=== PATIENT | male | born 1965 | race Caucasian/White ===

== ENCOUNTER 2018-11-26 12:45 | Inpatient (IN) | payer MEDICAID, OTHER ==
[~2018-11-26] VITALS: Ht 165.1 cm; Wt 99.0 kg
[2018-11-26] MEDS ORDERED: SODIUM CHLORIDE FLUSH 10ML SYR IVF ONE ×2 (13:00→13:30)
[2018-11-26 13:14] LABS: BASOPHILS # (AUTO) 0.02 x10^3/uL (0-0.1); BASOPHILS % (AUTO) 0 % (0-1); EOSINOPHILS # (AUTO) 0.06 x10^3/uL (0-0.4); EOSINOPHILS % (AUTO) 1 % (1-7); LYMPHOCYTES # (AUTO) 0.95 x10^3/uL (1-3.4); LYMPHOCYTES % (AUTO) 10 % (22-44); MD NO; MEAN CORPUSCULAR HEMOGLOBIN 26.2 pg (27.5-34.5); MEAN CORPUSCULAR HGB CONC 31.6 g/dL (33.2-36.2); MEAN CORPUSCULAR VOLUME 82.8 fL (81-97); MEAN PLATELET VOLUME 8.6 fL (7.4-10.4); MONOCYTES # (AUTO) 0.77 x10^3/uL (0.2-0.8); MONOCYTES % (AUTO) 8 % (2-9); NEUTROPHILS # (AUTO) 7.94 x10^3/uL (1.8-6.8); NEUTROPHILS % (AUTO) 82 % (42-75); PLATELET COUNT 356 x10^3/uL (130-400); RED BLOOD COUNT 6.39 x10^6/uL (4.38-5.82); RED CELL DISTRIBUTION WIDTH 17.4 % (9.4-14.8)
[2018-11-26 13:26] LABS: ALBUMIN 3.2 g/dL (3.4-5.0); ANION GAP 7 mmol/L (5-15); CALCIUM 8.6 mg/dL (8.5-10.1); CHLORIDE 103 mmol/L (98-107)
[2018-11-26] MEDS ORDERED: FUROSEMIDE 40 MG/4 ML IV ONE (13:30)
[2018-11-26 13:33] LABS: ALANINE AMINOTRANSFERASE 14 U/L (12-78); ALKALINE PHOSPHATASE 88 U/L (45-117); BILIRUBIN,TOTAL 0.5 mg/dL (0.2-1.0); TOTAL PROTEIN 7.1 g/dL (6.4-8.2); TROPONIN I 0.038 ng/mL (0.000-0.045)
[2018-11-26] MEDS ORDERED: FUROSEMIDE 40 MG/4 ML ONE (13:34)
[2018-11-26 13:38] LABS: INTERNATIONAL NORMALIZED RATIO 1.12 (0.93-1.1); PROTHROMBIN TIME 11.8 Seconds (9.6-11.5)
--- NOTE | 2018-11-26 13:48 | NUR ---
patient safe in bed, accompanied by spouse, came from triage via wheelchair on oxymask at 12+ L/min. patient reports no pain at this time, diminished lung sounds in all moore, sinus tach 104 on the monitor, normotensive, 3+ pitting bilateral LE edema, scrotal edema. call light in reach, medicated with 40 mg IV Lasix, 2x urinals attached to bedrails and fall risk discussed with patient and spouse, Med Rec completed,
[2018-11-26] MEDS ORDERED: GABA300C10 PO (13:57)
[2018-11-26] MEDS ORDERED: ATOR40TA78 PO (13:57)
[2018-11-26] MEDS ORDERED: ASPI1CPM7 PO (13:57)
[2018-11-26] MEDS ORDERED: METF10007 PO (13:57)
[2018-11-26] MEDS ORDERED: LEVO150T5 PO (13:57)
[2018-11-26] MEDS ORDERED: AMLO-150 PO (13:57)
[2018-11-26] MEDS ORDERED: GLIP5TAB10 PO (13:57)
[2018-11-26] MEDS ORDERED: LISI-167 PO (13:57)
[2018-11-26] MEDS ORDERED: ASPI-496 PO (13:58)
[2018-11-26 14:02] LABS: FREE T4 (FREE THYROXINE) 1.07 ng/dL (0.76-1.46); THYROID STIMULATING HORMONE 7.06 mIU/L (0.358-3.740)
--- NOTE | 2018-11-26 14:36 | NUR ---
patient remains safe in [place], no urine since IV lasix administration, US at bedside now, patient reports feeling more tired since arrival to ER, he is responsive to verbal but answering in one word answers, eupneic at 18/min, 89% on oxy mask at 14L/min.
[2018-11-26] MEDS ORDERED: HEPARIN 25,000 UNITS/500ML PMX 500 ML ONE (14:51)
[2018-11-26] MEDS ORDERED: HEPARIN 5,000 UNITS/ML, 1ML ONE (14:51)
--- NOTE | 2018-11-26 14:53 | NUR ---
2nd IV started in anticipation of CCU admit, patient going to CT scan via shawnee barrientos, MD Tam updated of 88% oxygen on oxy mask, this RN has called pharmacy to expedite orders for Heparin gtt, pump and tubing in room, ready to start Heparin when orders are in EMAR.
[2018-11-26] MEDS ORDERED: HEPARIN 5,000 UNITS/ML, 1ML IV ONE ×2 (15:00)
[2018-11-26] MEDS ORDERED: PROPOFOL 10 MG/ML, 100ML IV ONE (15:00)
[2018-11-26] MEDS ORDERED: ETOMIDATE 20 MG/10 ML ONE (15:00)
[2018-11-26] MEDS ORDERED: ROCURONIUM 10 MG/ML,10ML ONE (15:00)
[2018-11-26] MEDS ORDERED: HEPARIN 25,000 UNITS/500ML PMX 500 ML IV PRN ×2 (15:00)
[2018-11-26] MEDS ORDERED: HEPARIN 5,000 UNITS/ML, 1ML IV PRN ×2 (15:00)
--- NOTE | 2018-11-26 15:08 | NUR ---
report to RN Kimmy, all questions answered, patient and spous updated of transfer plan, patient to transfer upstairs immediately upon return to ER, on Zoll monitor, accompanied by this RN and tech, heparin gtt to start upon arrival to CCU.
[2018-11-26] MEDS ORDERED: OMNIPAQUE 350 MG/ML, 100ML BOTTLE ONE (15:10)
--- NOTE | 2018-11-26 15:27 | NUR ---
patient transported to CCU without incident, CCU staff have assumed care, no acute changes noted during transport, patient's spouse has gotten up to the 5th floor,
[2018-11-26] MEDS ORDERED: FENTANYL PF 100 MCG/2ML ONE (15:55)
[2018-11-26] MEDS ORDERED: NOREPINEPHRINE 1 MG/ML, 4ML ONE (15:56)
[2018-11-26] MEDS ORDERED: FENTANYL PF 100 MCG/2ML IVPush ONE (16:09)
[2018-11-26] MEDS ORDERED: ETOMIDATE 20 MG/10 ML IVPush ONE (16:13)
[2018-11-26] MEDS ORDERED: ROCURONIUM 10 MG/ML,10ML IVPush ONE (16:13)
[2018-11-26] MEDS ORDERED: VASOPRESSIN 100 UNIT in SODIUM CHLORIDE 0.9% 495 ML IV PRN ×2 (16:30→16:36)
[2018-11-26] MEDS ORDERED: DOCUSATE 100 MG CAPSULE PO PRN (16:30)
[2018-11-26] MEDS ORDERED: ONDANSETRON 2MG/ML, 2ML IVPush PRN (16:30)
[2018-11-26] MEDS ORDERED: NOREPINEPHRINE 4 MG in SODIUM CHLORIDE 0.9% 246 ML IV PRN ×2 (16:30→16:36)
[2018-11-26] MEDS ORDERED: BISACODYL 10 MG SUPP PR PRN ×2 (16:30→17:00)
[2018-11-26] MEDS ORDERED: ACETAMINOPHEN 325 MG TABLET PO PRN (16:30)
[2018-11-26] MEDS ORDERED: SODIUM CHLORIDE 0.9% 1,000ML IVBOLUS ONE (16:30)
[2018-11-26] MEDS ORDERED: GLUCAGON 1 MG IM PRN (17:00)
[2018-11-26] MEDS ORDERED: FENTANYL PF 100 MCG/2ML IVPush PRN (17:00)
[2018-11-26] MEDS ORDERED: DEXTROSE 50%, 50ML SYRINGE IVPush PRN (17:00)
[2018-11-26] MEDS ORDERED: PHARMACY MAY ADJ FOR RENAL FX MC SCH (17:00)
[2018-11-26] MEDS ORDERED: SENNOSIDES 8.8 MG/5 ML ORAL SOL NG PRN (17:00)
[2018-11-26] MEDS ORDERED: LACTULOSE 20 GM/30 ML UDC NG PRN (17:00)
[2018-11-26] MEDS ORDERED: LIDOCAINE-MPF 1%, 2ML ENDO PRN (17:00)
[2018-11-26] MEDS ORDERED: SENNA/DOCUSATE TABLET NG PRN (17:00)
[2018-11-26] MEDS ORDERED: DEXTROSE 4 GM TAB.CHEW PO PRN (17:00)
[2018-11-26] MEDS: SODIUM CHLORIDE 0.9% 1,000 ML IV SCH (17:19)
[2018-11-26] MEDS: CEFTRIAXONE PMX 2GM/50ML 50 ML IV SCH (17:19)
[2018-11-26] MEDS: methylPREDNISolone SOD SUCC 40 MG/ML IVPush SCH ×2 (17:20→22:06)
[2018-11-26] MEDS ORDERED: REGULAR INSULIN 62.5 UNITS in SODIUM CHLORIDE 0.9% 249.375 ML IV PRN (17:30)
[2018-11-26 17:45] LABS: MICROSCOPIC INDICATED
[2018-11-26] MEDS: INSULIN LISPRO 100 UNITS/ML, PEN SQ-INSULIN SCH ×2 (17:50→20:38)
[2018-11-26 17:52] LABS: TRIGLYCERIDES 72 mg/dL (50-200)
[2018-11-26 17:54] LABS: CULTURE INDICATED? NO
[2018-11-26 17:55] LABS: TROPONIN I 0.137 ng/mL (0.000-0.045)
[2018-11-26] MEDS: DOXYCYCLINE 100 MG in DEXTROSE 5% 250 ML IV SCH (18:00)
[2018-11-26 18:02] LABS: RAPID INFLUENZA A Negative (Negative); RAPID INFLUENZA B Negative (Negative)
[2018-11-26 18:51] LABS: AMPHETAMINE SCREEN, URINE Negative (Negative); BARBITURATE SCREEN, URINE Negative (Negative); BENZODIAZEPINE SCREEN, URINE Negative (Negative); CANNABINOID SCREEN, URINE Negative (Negative); COCAINE SCREEN, URINE Negative (Negative); METHADONE SCREEN, URINE Negative (Negative); OPIATE SCREEN, URINE Negative (Negative)
[2018-11-26] MEDS: PROPOFOL 100 ML IV PRN (20:32)
[2018-11-26] MEDS: HEPARIN 5,000 UNITS/ML, 1ML SQ SCH (20:32)
[2018-11-26] MEDS: FAMOTIDINE 20 MG/2 ML IVPush SCH (20:32)
[2018-11-26] MEDS: SODIUM CHLORIDE FLUSH 10ML SYR IVF SCH (20:43)
[2018-11-26] MEDS ORDERED: INSULIN LISPRO 100 UNITS/ML, PEN SQ-INSULIN SCH (21:00)
[2018-11-26 22:02] LABS: HEMOGLOBIN A1C 7.2 % (4.2-6.3)
[2018-11-26 22:56] LABS: TROPONIN I 0.269 ng/mL (0.000-0.045)
[2018-11-27] MEDS: INSULIN LISPRO 100 UNITS/ML, PEN SQ-INSULIN SCH ×6 (01:11→20:07)
[2018-11-27] MEDS: NOREPINEPHRINE 8 MG in SODIUM CHLORIDE 0.9% 242 ML IV PRN (01:55)
[2018-11-27] MEDS: PROPOFOL 100 ML IV PRN ×6 (02:33→23:56)
[2018-11-27 04:00] VITALS: BP 122/63
[2018-11-27 04:19] LABS: ALANINE AMINOTRANSFERASE 9 U/L (12-78); ALBUMIN 2.8 g/dL (3.4-5.0); ANION GAP 6 mmol/L (5-15); CALCIUM 8.4 mg/dL (8.5-10.1); CHLORIDE 107 mmol/L (98-107); CREATININE 1.75 mg/dL (0.7-1.3)
[2018-11-27 04:21] LABS: ALKALINE PHOSPHATASE 74 U/L (45-117); BILIRUBIN,TOTAL 0.7 mg/dL (0.2-1.0); TOTAL PROTEIN 6.4 g/dL (6.4-8.2)
[2018-11-27 04:26] LABS: BASOPHILS % (AUTO) 0 % (0-1); EOSINOPHILS % (AUTO) 0 % (1-7); LYMPHOCYTES # (AUTO) 0.67 x10^3/uL (1-3.4); LYMPHOCYTES % (AUTO) 5 % (22-44); MD NO; MEAN CORPUSCULAR HEMOGLOBIN 25.9 pg (27.5-34.5); MEAN CORPUSCULAR HGB CONC 31.6 g/dL (33.2-36.2); MEAN CORPUSCULAR VOLUME 82.1 fL (81-97); MEAN PLATELET VOLUME 8.6 fL (7.4-10.4); MONOCYTES # (AUTO) 0.17 x10^3/uL (0.2-0.8); MONOCYTES % (AUTO) 1 % (2-9); NEUTROPHILS # (AUTO) 11.91 x10^3/uL (1.8-6.8); NEUTROPHILS % (AUTO) 93 % (42-75); PLATELET COUNT 363 x10^3/uL (130-400); RED BLOOD COUNT 6.53 x10^6/uL (4.38-5.82); RED CELL DISTRIBUTION WIDTH 17.6 % (9.4-14.8)
[2018-11-27] MEDS: methylPREDNISolone SOD SUCC 40 MG/ML IVPush SCH ×2 (05:17→16:44)
[2018-11-27] MEDS: HEPARIN 5,000 UNITS/ML, 1ML SQ SCH ×3 (05:17→19:53)
[2018-11-27] MEDS: SODIUM CHLORIDE 0.9% 1,000 ML IV SCH ×2 (05:17→16:17)
[2018-11-27] MEDS: DOXYCYCLINE 100 MG in DEXTROSE 5% 250 ML IV SCH ×2 (06:02→16:30)
[2018-11-27] MEDS ORDERED: FUROSEMIDE 20 MG/2 ML IV ONE (09:30)
[2018-11-27] MEDS: FAMOTIDINE 20 MG/2 ML IVPush SCH ×2 (09:37→19:53)
[2018-11-27] MEDS: SODIUM CHLORIDE FLUSH 10ML SYR IVF SCH ×2 (09:38→19:53)
[2018-11-27] MEDS: INSULIN GLARGINE 100 UNITS/ML, PEN SQ-INSULIN SCH ×2 (09:38→19:56)
--- NOTE | 2018-11-27 11:46 | NUR ---
TF Recommendations: ON propofol: 55 ml/hr goal OFF propofol: 60 ml/hr goal
[2018-11-27] MEDS: CEFTRIAXONE PMX 2GM/50ML 50 ML IV SCH (16:30)
[2018-11-27] MEDS: FUROSEMIDE 20 MG/2 ML IV SCH (16:40)
[2018-11-27 16:58] LABS: TROPONIN I 0.158 ng/mL (0.000-0.045)
[2018-11-27] MEDS ORDERED: PANTOPRAZOLE 80 MG in SODIUM CHLORIDE 0.9% 100 ML IV SCH (17:30)
[2018-11-27] MEDS ORDERED: PANTOPRAZOLE 80 MG in SODIUM CHLORIDE 0.9% 50 ML IV ONE (17:30)
[2018-11-27] MEDS ORDERED: OCTREOTIDE 500 MCG in SODIUM CHLORIDE 0.9% 249 ML IV SCH (17:30)
[2018-11-28] MEDS: INSULIN LISPRO 100 UNITS/ML, PEN SQ-INSULIN SCH ×6 (00:37→19:49)
[2018-11-28] MEDS: NOREPINEPHRINE 8 MG in SODIUM CHLORIDE 0.9% 242 ML IV PRN (02:46)
[2018-11-28 04:00] VITALS: BP 113/73
[2018-11-28] MEDS: HEPARIN 5,000 UNITS/ML, 1ML SQ SCH ×3 (04:01→19:41)
[2018-11-28] MEDS: SODIUM CHLORIDE 0.9% 1,000 ML IV SCH (04:01)
[2018-11-28 04:22] LABS: BASOPHILS # (AUTO) 0.03 x10^3/uL (0-0.1); BASOPHILS % (AUTO) 0 % (0-1); EOSINOPHILS % (AUTO) 0 % (1-7); LYMPHOCYTES # (AUTO) 0.73 x10^3/uL (1-3.4); LYMPHOCYTES % (AUTO) 5 % (22-44); MD NO; MEAN CORPUSCULAR HEMOGLOBIN 26.2 pg (27.5-34.5); MEAN CORPUSCULAR HGB CONC 32.1 g/dL (33.2-36.2); MEAN CORPUSCULAR VOLUME 81.7 fL (81-97); MEAN PLATELET VOLUME 8.9 fL (7.4-10.4); MONOCYTES # (AUTO) 0.79 x10^3/uL (0.2-0.8); MONOCYTES % (AUTO) 5 % (2-9); NEUTROPHILS # (AUTO) 13.11 x10^3/uL (1.8-6.8); NEUTROPHILS % (AUTO) 89 % (42-75); PLATELET COUNT 357 x10^3/uL (130-400); RED BLOOD COUNT 6.23 x10^6/uL (4.38-5.82); RED CELL DISTRIBUTION WIDTH 17.2 % (9.4-14.8)
[2018-11-28 04:30] LABS: ALANINE AMINOTRANSFERASE 12 U/L (12-78); ALBUMIN 2.5 g/dL (3.4-5.0); ANION GAP 7 mmol/L (5-15); CHLORIDE 108 mmol/L (98-107); CREATININE 1.62 mg/dL (0.7-1.3)
[2018-11-28 04:33] LABS: ALKALINE PHOSPHATASE 66 U/L (45-117); BILIRUBIN,TOTAL 0.5 mg/dL (0.2-1.0)
[2018-11-28] MEDS: PROPOFOL 100 ML IV PRN ×5 (04:41→19:46)
[2018-11-28] MEDS: methylPREDNISolone SOD SUCC 40 MG/ML IVPush SCH (04:41)
[2018-11-28] MEDS: DOXYCYCLINE 100 MG in DEXTROSE 5% 250 ML IV SCH ×2 (04:45→18:14)
[2018-11-28] MEDS: FAMOTIDINE 20 MG/2 ML IVPush SCH ×2 (07:55→19:41)
[2018-11-28] MEDS: FUROSEMIDE 20 MG/2 ML IV SCH ×2 (07:55→16:43)
[2018-11-28] MEDS: SODIUM CHLORIDE FLUSH 10ML SYR IVF SCH ×2 (07:56→19:42)
[2018-11-28] MEDS: INSULIN GLARGINE 100 UNITS/ML, PEN SQ-INSULIN SCH ×2 (07:56→19:49)
[2018-11-28] MEDS ORDERED: SODIUM CHLORIDE 0.9% 1,000 ML IV SCH (09:30)
[2018-11-28] MEDS: CEFTRIAXONE PMX 2GM/50ML 50 ML IV SCH (16:39)
[2018-11-29] MEDS: INSULIN LISPRO 100 UNITS/ML, PEN SQ-INSULIN SCH ×6 (00:22→20:07)
[2018-11-29] MEDS: PROPOFOL 100 ML IV PRN ×6 (01:58→20:01)
[2018-11-29 04:00] VITALS: BP 107/57
[2018-11-29] MEDS: HEPARIN 5,000 UNITS/ML, 1ML SQ SCH ×3 (04:28→20:10)
[2018-11-29] MEDS ORDERED: methylPREDNISolone SOD SUCC 40 MG/ML IVPush SCH (04:30)
[2018-11-29 04:44] LABS: BASOPHILS # (AUTO) 0.05 x10^3/uL (0-0.1); BASOPHILS % (AUTO) 1 % (0-1); EOSINOPHILS # (AUTO) 0.04 x10^3/uL (0-0.4); EOSINOPHILS % (AUTO) 0 % (1-7); LYMPHOCYTES # (AUTO) 1.21 x10^3/uL (1-3.4); LYMPHOCYTES % (AUTO) 13 % (22-44); MD NO; MEAN CORPUSCULAR HEMOGLOBIN 25.9 pg (27.5-34.5); MEAN CORPUSCULAR HGB CONC 32.1 g/dL (33.2-36.2); MEAN CORPUSCULAR VOLUME 80.7 fL (81-97); MEAN PLATELET VOLUME 8.7 fL (7.4-10.4); MONOCYTES # (AUTO) 0.73 x10^3/uL (0.2-0.8); MONOCYTES % (AUTO) 8 % (2-9); NEUTROPHILS # (AUTO) 7.65 x10^3/uL (1.8-6.8); NEUTROPHILS % (AUTO) 79 % (42-75); PLATELET COUNT 288 x10^3/uL (130-400); RED BLOOD COUNT 6.06 x10^6/uL (4.38-5.82)
[2018-11-29 04:55] LABS: ALANINE AMINOTRANSFERASE 10 U/L (12-78); ALBUMIN 2.2 g/dL (3.4-5.0); ANION GAP 5 mmol/L (5-15); CALCIUM 7.9 mg/dL (8.5-10.1); CHLORIDE 108 mmol/L (98-107); CREATININE 1.38 mg/dL (0.7-1.3)
[2018-11-29 04:59] LABS: ALKALINE PHOSPHATASE 58 U/L (45-117); BILIRUBIN,TOTAL 0.4 mg/dL (0.2-1.0); TOTAL PROTEIN 5.4 g/dL (6.4-8.2); TRIGLYCERIDES 142 mg/dL (50-200)
[2018-11-29] MEDS: DOXYCYCLINE 100 MG in DEXTROSE 5% 250 ML IV SCH ×2 (05:20→18:15)
[2018-11-29] MEDS ORDERED: DOXYCYCLINE 100 MG in DEXTROSE 5% 250 ML IV SCH ×2 (05:30→19:30)
[2018-11-29] MEDS: FAMOTIDINE 20 MG/2 ML IVPush SCH ×2 (08:57→20:01)
[2018-11-29] MEDS: POLYETHYLENE GLYCOL 17 GM PACKET PO PRN (08:57)
[2018-11-29] MEDS: FUROSEMIDE 20 MG/2 ML IV SCH ×2 (08:57→17:34)
[2018-11-29] MEDS: INSULIN GLARGINE 100 UNITS/ML, PEN SQ-INSULIN SCH ×2 (08:58→20:08)
[2018-11-29] MEDS: SODIUM CHLORIDE FLUSH 10ML SYR IVF SCH ×2 (08:59→20:10)
[2018-11-29] MEDS ORDERED: MAGNESIUM SULFATE 4 GM in SODIUM CHLORIDE 0.9% 100 ML IV ONE (10:00)
[2018-11-29] MEDS ORDERED: CEFTRIAXONE PMX 2GM/50ML 50 ML IV SCH (16:30)
[2018-11-30] MEDS: PROPOFOL 100 ML IV PRN ×4 (00:24→10:46)
[2018-11-30] MEDS: INSULIN LISPRO 100 UNITS/ML, PEN SQ-INSULIN SCH ×6 (00:26→20:26)
[2018-11-30] MEDS: HEPARIN 5,000 UNITS/ML, 1ML SQ SCH ×3 (03:57→20:21)
[2018-11-30 04:00] VITALS: BP 105/65
[2018-11-30 04:16] LABS: BASOPHILS # (AUTO) 0.01 x10^3/uL (0-0.1); BASOPHILS % (AUTO) 0 % (0-1); EOSINOPHILS # (AUTO) 0.07 x10^3/uL (0-0.4); EOSINOPHILS % (AUTO) 1 % (1-7); LYMPHOCYTES # (AUTO) 1.21 x10^3/uL (1-3.4); LYMPHOCYTES % (AUTO) 14 % (22-44); MD NO; MEAN CORPUSCULAR HEMOGLOBIN 25.9 pg (27.5-34.5); MEAN CORPUSCULAR HGB CONC 32.1 g/dL (33.2-36.2); MEAN CORPUSCULAR VOLUME 80.8 fL (81-97); MEAN PLATELET VOLUME 8.5 fL (7.4-10.4); MONOCYTES # (AUTO) 0.73 x10^3/uL (0.2-0.8); MONOCYTES % (AUTO) 9 % (2-9); NEUTROPHILS # (AUTO) 6.52 x10^3/uL (1.8-6.8); NEUTROPHILS % (AUTO) 76 % (42-75); PLATELET COUNT 267 x10^3/uL (130-400); RED BLOOD COUNT 6.15 x10^6/uL (4.38-5.82); RED CELL DISTRIBUTION WIDTH 17.5 % (9.4-14.8)
[2018-11-30 04:27] LABS: ANION GAP 3 mmol/L (5-15); CALCIUM 7.8 mg/dL (8.5-10.1); CHLORIDE 106 mmol/L (98-107); CREATININE 1.11 mg/dL (0.7-1.3)
[2018-11-30] MEDS: DOXYCYCLINE 100 MG in DEXTROSE 5% 250 ML IV SCH ×2 (05:56→17:35)
[2018-11-30] MEDS: SODIUM CHLORIDE FLUSH 10ML SYR IVF SCH ×2 (08:34→20:22)
[2018-11-30] MEDS: FAMOTIDINE 20 MG/2 ML IVPush SCH ×2 (08:34→20:21)
[2018-11-30] MEDS: INSULIN GLARGINE 100 UNITS/ML, PEN SQ-INSULIN SCH ×2 (08:38→20:27)
[2018-11-30] MEDS: AcetaZOLAMIDE INJ 500 MG IVPush SCH ×2 (10:25→20:21)
[2018-11-30] MEDS: CEFTRIAXONE PMX 2GM/50ML 50 ML IV SCH (16:12)
[2018-12-01] MEDS: INSULIN LISPRO 100 UNITS/ML, PEN SQ-INSULIN SCH ×6 (00:32→20:00)
[2018-12-01 04:00] VITALS: BP 152/80
[2018-12-01] MEDS: HEPARIN 5,000 UNITS/ML, 1ML SQ SCH ×3 (04:01→20:38)
[2018-12-01] MEDS: DOXYCYCLINE 100 MG in DEXTROSE 5% 250 ML IV SCH ×2 (04:30→17:33)
[2018-12-01 06:01] LABS: BASOPHILS # (AUTO) 0.05 x10^3/uL (0-0.1); BASOPHILS % (AUTO) 1 % (0-1); EOSINOPHILS # (AUTO) 0.09 x10^3/uL (0-0.4); EOSINOPHILS % (AUTO) 1 % (1-7); LYMPHOCYTES # (AUTO) 1.06 x10^3/uL (1-3.4); LYMPHOCYTES % (AUTO) 10 % (22-44); MD NO; MEAN CORPUSCULAR HEMOGLOBIN 25.8 pg (27.5-34.5); MEAN CORPUSCULAR VOLUME 80.7 fL (81-97); MEAN PLATELET VOLUME 8.7 fL (7.4-10.4); MONOCYTES # (AUTO) 0.83 x10^3/uL (0.2-0.8); MONOCYTES % (AUTO) 8 % (2-9); NEUTROPHILS # (AUTO) 8.61 x10^3/uL (1.8-6.8); NEUTROPHILS % (AUTO) 81 % (42-75); PLATELET COUNT 277 x10^3/uL (130-400); RED BLOOD COUNT 6.52 x10^6/uL (4.38-5.82); RED CELL DISTRIBUTION WIDTH 17.5 % (9.4-14.8)
[2018-12-01 06:15] LABS: ALANINE AMINOTRANSFERASE 15 U/L (12-78); ALBUMIN 2.9 g/dL (3.4-5.0); ANION GAP 6 mmol/L (5-15); CALCIUM 8.5 mg/dL (8.5-10.1); CHLORIDE 109 mmol/L (98-107); CREATININE 1.06 mg/dL (0.7-1.3)
[2018-12-01 06:17] LABS: ALKALINE PHOSPHATASE 76 U/L (45-117); BILIRUBIN,TOTAL 0.6 mg/dL (0.2-1.0); TOTAL PROTEIN 6.8 g/dL (6.4-8.2)
[2018-12-01] MEDS: FAMOTIDINE 20 MG/2 ML IVPush SCH ×2 (08:32→20:38)
[2018-12-01] MEDS: INSULIN GLARGINE 100 UNITS/ML, PEN SQ-INSULIN SCH ×2 (08:32→20:42)
[2018-12-01] MEDS: AcetaZOLAMIDE INJ 500 MG IVPush SCH ×2 (08:32→20:38)
[2018-12-01] MEDS: SODIUM CHLORIDE FLUSH 10ML SYR IVF SCH ×2 (08:32→20:52)
[2018-12-01] MEDS ORDERED: POTASSIUM CHLORIDE 20 MEQ TAB.ER.PRT PO ONE (10:00)
[2018-12-01] MEDS ORDERED: FUROSEMIDE 40 MG/4 ML IV ONE (10:00)
[2018-12-01] MEDS: POLYETHYLENE GLYCOL 17 GM PACKET PO PRN (10:15)
[2018-12-01] MEDS: CEFTRIAXONE PMX 2GM/50ML 50 ML IV SCH (16:29)
[2018-12-02 03:57] LABS: BASOPHILS # (AUTO) 0.06 x10^3/uL (0-0.1); BASOPHILS % (AUTO) 1 % (0-1); EOSINOPHILS # (AUTO) 0.17 x10^3/uL (0-0.4); EOSINOPHILS % (AUTO) 2 % (1-7); LYMPHOCYTES # (AUTO) 1.13 x10^3/uL (1-3.4); LYMPHOCYTES % (AUTO) 10 % (22-44); MD NO; MEAN CORPUSCULAR HEMOGLOBIN 25.8 pg (27.5-34.5); MEAN CORPUSCULAR HGB CONC 32.2 g/dL (33.2-36.2); MEAN CORPUSCULAR VOLUME 80.2 fL (81-97); MEAN PLATELET VOLUME 8.9 fL (7.4-10.4); MONOCYTES # (AUTO) 0.89 x10^3/uL (0.2-0.8); MONOCYTES % (AUTO) 8 % (2-9); NEUTROPHILS # (AUTO) 8.94 x10^3/uL (1.8-6.8); NEUTROPHILS % (AUTO) 80 % (42-75); PLATELET COUNT 262 x10^3/uL (130-400); RED BLOOD COUNT 6.34 x10^6/uL (4.38-5.82); RED CELL DISTRIBUTION WIDTH 17.1 % (9.4-14.8)
[2018-12-02 04:00] VITALS: BP 117/59
[2018-12-02] MEDS: INSULIN LISPRO 100 UNITS/ML, PEN SQ-INSULIN SCH ×6 (04:00→19:30)
[2018-12-02] MEDS: HEPARIN 5,000 UNITS/ML, 1ML SQ SCH ×3 (04:35→19:29)
[2018-12-02] MEDS: DOXYCYCLINE 100 MG in DEXTROSE 5% 250 ML IV SCH ×2 (05:28→18:01)
[2018-12-02] MEDS ORDERED: MAGNESIUM SULFATE PMX 2GM/50ML 50 ML IV ONE (07:30)
[2018-12-02] MEDS: AcetaZOLAMIDE INJ 500 MG IVPush SCH (08:42)
[2018-12-02] MEDS: INSULIN GLARGINE 100 UNITS/ML, PEN SQ-INSULIN SCH ×2 (08:42→19:29)
[2018-12-02] MEDS: FAMOTIDINE 20 MG/2 ML IVPush SCH ×2 (08:42→19:29)
[2018-12-02] MEDS ORDERED: FUROSEMIDE 40 MG/4 ML IV ONE (09:00)
[2018-12-02] MEDS ORDERED: POTASSIUM CHLORIDE 20 MEQ TAB.ER.PRT PO ONE (09:00)
[2018-12-02] MEDS: SODIUM CHLORIDE FLUSH 10ML SYR IVF SCH ×2 (09:33→19:29)
[2018-12-02] MEDS: CEFTRIAXONE PMX 2GM/50ML 50 ML IV SCH (16:07)
[2018-12-02 19:45] VITALS: BP 131/77
[2018-12-03 01:22] VITALS: BP 113/72
[2018-12-03] MEDS: HEPARIN 5,000 UNITS/ML, 1ML SQ SCH ×3 (03:43→20:17)
[2018-12-03] MEDS: DOXYCYCLINE 100 MG in DEXTROSE 5% 250 ML IV SCH ×2 (05:23→17:59)
[2018-12-03] MEDS: INSULIN LISPRO 100 UNITS/ML, PEN SQ-INSULIN SCH ×4 (07:00→20:21)
[2018-12-03] MEDS: FAMOTIDINE 20 MG/2 ML IVPush SCH ×2 (07:59→20:16)
[2018-12-03] MEDS: SODIUM CHLORIDE FLUSH 10ML SYR IVF SCH ×2 (08:00→20:17)
[2018-12-03] MEDS: INSULIN GLARGINE 100 UNITS/ML, PEN SQ-INSULIN SCH ×2 (08:00→20:21)
[2018-12-03 09:22] VITALS: BP 110/68
[2018-12-03] MEDS ORDERED: FUROSEMIDE 40 MG/4 ML IV ONE (12:00)
[2018-12-03] MEDS ORDERED: POTASSIUM CHLORIDE 20 MEQ TAB.ER.PRT PO ONE (12:00)
[2018-12-03 12:47] VITALS: BP 115/74
[2018-12-03] MEDS: CEFTRIAXONE PMX 2GM/50ML 50 ML IV SCH (16:48)
[2018-12-03 18:53] VITALS: BP 113/71
[2018-12-04 00:12] VITALS: BP 124/71
[2018-12-04] MEDS: HEPARIN 5,000 UNITS/ML, 1ML SQ SCH ×3 (04:23→20:30)
[2018-12-04] MEDS: DOXYCYCLINE 100 MG in DEXTROSE 5% 250 ML IV SCH ×2 (05:26→17:36)
[2018-12-04 06:32] VITALS: BP 119/77
[2018-12-04] MEDS: INSULIN GLARGINE 100 UNITS/ML, PEN SQ-INSULIN SCH ×2 (07:52→20:40)
[2018-12-04] MEDS: INSULIN LISPRO 100 UNITS/ML, PEN SQ-INSULIN SCH ×4 (07:52→20:39)
[2018-12-04] MEDS: FAMOTIDINE 20 MG/2 ML IVPush SCH (08:45)
[2018-12-04] MEDS: SODIUM CHLORIDE FLUSH 10ML SYR IVF SCH ×2 (08:46→20:32)
[2018-12-04 10:49] LABS: BASOPHILS # (AUTO) 0.04 x10^3/uL (0-0.1); BASOPHILS % (AUTO) 1 % (0-1); EOSINOPHILS # (AUTO) 0.14 x10^3/uL (0-0.4); EOSINOPHILS % (AUTO) 2 % (1-7); LYMPHOCYTES # (AUTO) 0.98 x10^3/uL (1-3.4); LYMPHOCYTES % (AUTO) 12 % (22-44); MD NO; MEAN CORPUSCULAR HEMOGLOBIN 25.4 pg (27.5-34.5); MEAN CORPUSCULAR HGB CONC 31.8 g/dL (33.2-36.2); MEAN CORPUSCULAR VOLUME 79.9 fL (81-97); MEAN PLATELET VOLUME 8.9 fL (7.4-10.4); MONOCYTES # (AUTO) 1.07 x10^3/uL (0.2-0.8); MONOCYTES % (AUTO) 13 % (2-9); NEUTROPHILS # (AUTO) 5.85 x10^3/uL (1.8-6.8); NEUTROPHILS % (AUTO) 72 % (42-75); PLATELET COUNT 298 x10^3/uL (130-400); RED BLOOD COUNT 6.16 x10^6/uL (4.38-5.82); RED CELL DISTRIBUTION WIDTH 16.9 % (9.4-14.8)
[2018-12-04 10:59] LABS: ALANINE AMINOTRANSFERASE 21 U/L (12-78); ALBUMIN 2.8 g/dL (3.4-5.0); ANION GAP 5 mmol/L (5-15); CALCIUM 8.7 mg/dL (8.5-10.1); CHLORIDE 106 mmol/L (98-107); CREATININE 0.94 mg/dL (0.7-1.3)
[2018-12-04 11:02] LABS: ALKALINE PHOSPHATASE 71 U/L (45-117); BILIRUBIN,TOTAL 0.4 mg/dL (0.2-1.0); TOTAL PROTEIN 6.7 g/dL (6.4-8.2)
[2018-12-04 13:39] VITALS: BP 111/72
[2018-12-04] MEDS: CEFTRIAXONE PMX 2GM/50ML 50 ML IV SCH (16:29)
[2018-12-04 18:33] VITALS: BP 119/76
[2018-12-04] MEDS: FAMOTIDINE 20 MG TABLET PO SCH (20:30)
[2018-12-05 00:13] VITALS: BP 120/77
[2018-12-05] MEDS: HEPARIN 5,000 UNITS/ML, 1ML SQ SCH ×2 (04:27→12:00)
[2018-12-05 05:03] LABS: ALANINE AMINOTRANSFERASE 18 U/L (12-78); ALBUMIN 2.8 g/dL (3.4-5.0); ANION GAP 3 mmol/L (5-15); BASOPHILS # (AUTO) 0.04 x10^3/uL (0-0.1); BASOPHILS % (AUTO) 1 % (0-1); CALCIUM 8.3 mg/dL (8.5-10.1); CHLORIDE 108 mmol/L (98-107); CREATININE 0.89 mg/dL (0.7-1.3); EOSINOPHILS % (AUTO) 2 % (1-7); LYMPHOCYTES # (AUTO) 1.19 x10^3/uL (1-3.4); LYMPHOCYTES % (AUTO) 15 % (22-44); MD NO; MEAN CORPUSCULAR VOLUME 81.3 fL (81-97); MEAN PLATELET VOLUME 9.1 fL (7.4-10.4); MONOCYTES # (AUTO) 1.04 x10^3/uL (0.2-0.8); MONOCYTES % (AUTO) 13 % (2-9); NEUTROPHILS # (AUTO) 5.62 x10^3/uL (1.8-6.8); NEUTROPHILS % (AUTO) 70 % (42-75); PLATELET COUNT 298 x10^3/uL (130-400); RED BLOOD COUNT 6.18 x10^6/uL (4.38-5.82); RED CELL DISTRIBUTION WIDTH 16.7 % (9.4-14.8)
[2018-12-05 05:06] LABS: ALKALINE PHOSPHATASE 67 U/L (45-117); BILIRUBIN,TOTAL 0.7 mg/dL (0.2-1.0); TOTAL PROTEIN 6.8 g/dL (6.4-8.2)
[2018-12-05] MEDS ORDERED: DOXYCYCLINE 100MG TABLET PO SCH ×2 (05:30)
[2018-12-05 07:22] VITALS: BP 116/78
[2018-12-05] MEDS: INSULIN LISPRO 100 UNITS/ML, PEN SQ-INSULIN SCH ×2 (07:31→10:52)
[2018-12-05] MEDS: FAMOTIDINE 20 MG TABLET PO SCH (09:01)
[2018-12-05] MEDS: SODIUM CHLORIDE FLUSH 10ML SYR IVF SCH (09:01)
[2018-12-05] MEDS: INSULIN GLARGINE 100 UNITS/ML, PEN SQ-INSULIN SCH (09:03)
[2018-12-05] MEDS ORDERED: DOXY100T PO (11:07)
[2018-12-05] MEDS ORDERED: CEFD300C37 PO (11:07)
== END 2018-12-05 14:58 | disposition home or self-care (01) | DRG 870 ==
LOC: ED 14:14 → EDIP 14:16 → CCU 15:19 → 3NW 12-02 16:29 → DCLOUNGE 12-05 14:39
PROVIDERS: ADMIT Internal Medicine; ATTEND Internal Medicine
PROC: 5A1955Z Respiratory Ventilation, Greater than 96 Consecutive Hours (ICD-10-PCS; principal; 2018-11-26)
PROC: 02HV33Z Insertion of Infusion Device into Superior Vena Cava, Percutaneous Approach (ICD-10-PCS; 2018-11-26)
PROC: B548ZZA Ultrasonography of Superior Vena Cava, Guidance (ICD-10-PCS; 2018-11-26)
PROC: 0BH17EZ Insertion of Endotracheal Airway into Trachea, Via Natural or Artificial Opening (ICD-10-PCS; 2018-11-26)
DX: A41.9 Sepsis, unspecified organism (principal); J18.1 Lobar pneumonia, unspecified organism; J96.01 Acute respiratory failure with hypoxia; J96.02 Acute respiratory failure with hypercapnia; N17.0 Acute kidney failure with tubular necrosis; R65.21 Severe sepsis with septic shock; G93.40 Encephalopathy, unspecified; Z99.11 Dependence on respirator [ventilator] status; D75.89 Other specified diseases of blood and blood-forming organs; E11.9 Type 2 diabetes mellitus without complications; E78.5 Hyperlipidemia, unspecified; E87.5 Hyperkalemia; G47.33 Obstructive sleep apnea (adult) (pediatric); G89.4 Chronic pain syndrome; I11.0 Hypertensive heart disease with heart failure; I27.29 Other secondary pulmonary hypertension; M19.90 Unspecified osteoarthritis, unspecified site; I87.8 Other specified disorders of veins; I27.81 Cor pulmonale (chronic); I27.20 Pulmonary hypertension, unspecified; I50.811 Acute right heart failure; Z77.22 Contact with and (suspected) exposure to environmental tobacco smoke (acute) (chronic); Z86.73 Personal history of transient ischemic attack (TIA), and cerebral infarction without residual deficits; Z79.84 Long term (current) use of oral hypoglycemic drugs
CPT/HCPCS: 36415; 36600; 84145; 87400; 99291; J3490; 70450; 71045; 71275; 80048; 80053; 80307; 81001; 82274; 82533; 82728; 82803; 82962; 83036; 83540; 83550; 83605; 83735; 83880; 84100; 84132; 84439; 84443; 84478; 84484; 85025; 85520; 85610; 87040; 87070; 87081; 87205; 93005; 93306; 93308; 93970; 94002; 94003; 94150; 96372; 96374; 96375; G0378; J0696; J1644; J1940; J2704; J3010; J3475; J7060; Q9967; J1120; J1815; J2920; J7030; J7050

== ENCOUNTER → 2019-02-26 | Outpatient (CLI) | payer MEDICAID ==
[~2019-02-26] MED LIST: AMLO-150 PO; ASPI-496 PO; ASPI1CPM7 PO; ATOR40TA78 PO; CEFD300C37 PO; DOXY100T PO; GABA300C10 PO; GLIP5TAB10 PO; LEVO150T5 PO; LISI-167 PO; METF10007 PO
== END | disposition home or self-care (01) ==
LOC: CFH 12:46
PROVIDERS: ATTEND Internal Medicine Cardiovascular Disease
DX: I35.1 Nonrheumatic aortic (valve) insufficiency (principal); E78.5 Hyperlipidemia, unspecified; E11.9 Type 2 diabetes mellitus without complications; I11.9 Hypertensive heart disease without heart failure
CPT/HCPCS: 93306

== ENCOUNTER 2019-03-24 08:16 | Day surgery (SDC) | payer MEDICAID ==
[2019-03-22 11:44] LABS: BASOPHILS # (AUTO) 0.01 x10^3/uL (0-0.1); BASOPHILS % (AUTO) 0 % (0-1); EOSINOPHILS # (AUTO) 0.12 x10^3/uL (0-0.4); EOSINOPHILS % (AUTO) 2 % (1-7); LYMPHOCYTES # (AUTO) 1.11 x10^3/uL (1-3.4); LYMPHOCYTES % (AUTO) 15 % (22-44); MD NO; MEAN CORPUSCULAR HEMOGLOBIN 28.4 pg (27.5-34.5); MEAN CORPUSCULAR HGB CONC 32.8 g/dL (33.2-36.2); MEAN CORPUSCULAR VOLUME 86.4 fL (81-97); MEAN PLATELET VOLUME 7.8 fL (7.4-10.4); MONOCYTES # (AUTO) 0.53 x10^3/uL (0.2-0.8); MONOCYTES % (AUTO) 7 % (2-9); NEUTROPHILS # (AUTO) 5.49 x10^3/uL (1.8-6.8); NEUTROPHILS % (AUTO) 76 % (42-75); PLATELET COUNT 337 x10^3/uL (130-400); RED BLOOD COUNT 5.18 x10^6/uL (4.38-5.82); RED CELL DISTRIBUTION WIDTH 14.6 % (9.4-14.8)
[2019-03-22 11:53] LABS: INTERNATIONAL NORMALIZED RATIO 0.97 (0.93-1.1); PROTHROMBIN TIME 10.2 Seconds (9.6-11.5)
[2019-03-22 11:54] LABS: ANION GAP 1 mmol/L (5-15); CALCIUM 9.2 mg/dL (8.5-10.1); CHLORIDE 102 mmol/L (98-107)
[2019-03-22 11:55] VITALS: BP 139/79
[~2019-03-24] VITALS: Ht 165.1 cm; Wt 100.0 kg
[~2019-03-24 08:16] MED LIST changes: +ASPI1CPM9 PO; +ATOR10TA PO; +BUME1TAB21 PO; +CARV6.2512 PO; +LISI40TA PO
[2019-03-24] MEDS ORDERED: DIPHENHYDRAMINE 50 MG/ML, 1ML IVPush PRN (09:00)
[2019-03-24] MEDS ORDERED: DIPHENHYDRAMINE 50 MG/ML, 1ML ONE (09:12)
[2019-03-24] MEDS ORDERED: VERAPAMIL 2.5 MG/ML, 2ML ONE (09:38)
[2019-03-24] MEDS ORDERED: HEPARIN 1,000 UNITS/ML, 10ML ONE (09:38)
[2019-03-24] MEDS ORDERED: NITROGLYCERIN 5 MG/ML, 10ML ONE (09:38)
[2019-03-24] MEDS ORDERED: MIDAZOLAM 1 MG/ML, 5ML ONE (09:38)
[2019-03-24] MEDS ORDERED: LIDOCAINE-MPF 1%, 5ML ONE (09:38)
[2019-03-24] MEDS ORDERED: FENTANYL PF 100 MCG/2ML ONE (09:38)
[2019-03-24] MEDS ORDERED: SODIUM CHLORIDE 0.9% 1,000 ML IV SCH (11:06)
== END 2019-03-24 13:20 | disposition home or self-care (01) ==
LOC: CACL 08:16
PROVIDERS: ATTEND Internal Medicine Cardiovascular Disease
DX: I27.23 Pulmonary hypertension due to lung diseases and hypoxia (principal); E11.9 Type 2 diabetes mellitus without complications; I10 Essential (primary) hypertension; E78.5 Hyperlipidemia, unspecified; Z88.0 Allergy status to penicillin; Z87.891 Personal history of nicotine dependence
CPT/HCPCS: 36415; 80048; 85025; 85610; 85730; 93460; 99156; 99157; C1769; C1894; J1200; J1644; J2250; J3010; Q9967

== ENCOUNTER 2019-05-03 16:12 | Inpatient (IN) | payer MEDICAID ==
[~2019-05-03] VITALS: Ht 165.1 cm; Wt 101.0 kg
[2019-05-13 07:25] VITALS: BP 113/73
== END 2019-05-13 12:50 | disposition home health service (06) | DRG 208 ==
LOC: ED 18:29 → EDIP 18:42 → CCU 18:52 → 5SO 05-07 18:19
PROVIDERS: ADMIT Family Medicine; ATTEND Family Medicine
PROC: 5A1935Z Respiratory Ventilation, Less than 24 Consecutive Hours (ICD-10-PCS; principal; 2019-05-03)
PROC: 0BH17EZ Insertion of Endotracheal Airway into Trachea, Via Natural or Artificial Opening (ICD-10-PCS; 2019-05-03)
PROC: 0T9B70Z Drainage of Bladder with Drainage Device, Via Natural or Artificial Opening (ICD-10-PCS; 2019-05-03)
PROC: 02HV33Z Insertion of Infusion Device into Superior Vena Cava, Percutaneous Approach (ICD-10-PCS; 2019-05-04)
PROC: B548ZZA Ultrasonography of Superior Vena Cava, Guidance (ICD-10-PCS; 2019-05-04)
PROC: 0BJ08ZZ Inspection of Tracheobronchial Tree, Via Natural or Artificial Opening Endoscopic (ICD-10-PCS; 2019-05-11)
DX: J96.21 Acute and chronic respiratory failure with hypoxia (principal); N17.0 Acute kidney failure with tubular necrosis; J15.9 Unspecified bacterial pneumonia; I50.21 Acute systolic (congestive) heart failure; J44.0 Chronic obstructive pulmonary disease with (acute) lower respiratory infection; Z99.11 Dependence on respirator [ventilator] status; I13.0 Hypertensive heart and chronic kidney disease with heart failure and stage 1 through stage 4 chronic kidney disease, or unspecified chronic kidney disease; E87.3 Alkalosis; J96.22 Acute and chronic respiratory failure with hypercapnia; M06.9 Rheumatoid arthritis, unspecified; N18.9 Chronic kidney disease, unspecified; D64.9 Anemia, unspecified; E03.9 Hypothyroidism, unspecified; I27.81 Cor pulmonale (chronic); H54.7 Unspecified visual loss; E11.22 Type 2 diabetes mellitus with diabetic chronic kidney disease; E78.5 Hyperlipidemia, unspecified; I27.21 Secondary pulmonary arterial hypertension; G47.33 Obstructive sleep apnea (adult) (pediatric); E66.9 Obesity, unspecified; Z83.3 Family history of diabetes mellitus; Z99.81 Dependence on supplemental oxygen; Z82.49 Family history of ischemic heart disease and other diseases of the circulatory system; Z79.84 Long term (current) use of oral hypoglycemic drugs; Z86.73 Personal history of transient ischemic attack (TIA), and cerebral infarction without residual deficits; Z87.891 Personal history of nicotine dependence; Z68.37 Body mass index [BMI] 37.0-37.9, adult; Z88.0 Allergy status to penicillin
CPT/HCPCS: 36415; 36600; 84145; 99291; J3490; J7620; 31624; 36573; 71045; 71046; 71250; 76770; 80048; 80053; 80162; 80307; 81001; 82436; 82570; 82803; 82962; 83036; 83605; 83690; 83735; 83880; 84100; 84132; 84439; 84443; 84478; 84481; 84484; 84550; 84560; 85025; 87040; 87070; 87081; 87102; 87205; 88112; 88305; 93005; 93970; 94002; 94003; 94640; 94667; 94668; 96365; 96375; 99152; 99153; C8929; G0378; J0456; J0696; J1644; J1940; J2250; J2704; J3010; J3480; J7060; P9047; Q9957; C1751; J1815; J3475; J7050

== ENCOUNTER 2019-12-04 18:28 | Inpatient (IN) | payer MEDICAID ==
[~2019-12-04] VITALS: Ht 185.4 cm; Wt 99.2 kg
[~2019-12-04 18:28] MED LIST changes: +CARV3.1212 PO
--- NOTE | 2019-12-04 18:39 | NUR ---
Pt ANTWAN ARANA- Pt's called EMS at 1800 states found pt unresponsive in his recliner, last known well at 0900. On arrival pt not responsive to painful stimuli, Skin PWD, manual BP with doppler is 52 Systolic. At 1829 Pt given 100mg Rocuronium IVP per Dr. Montelongo. Pt intubated by Dr. Montelongo at 183 with 8.0 ETT @25cm at the teeth.
[2019-12-04] MEDS ORDERED: methylPREDNISolone SOD SUCC 125 MG/2 ML ONE (18:42)
[2019-12-04] MEDS ORDERED: ALBUTEROL 0.5%, 20ML ONE (18:43)
--- NOTE | 2019-12-04 18:46 | NUR ---
Pharmacy called for epi gtt
--- NOTE | 2019-12-04 18:48 | NUR ---
Pads placed on pt. Solumedrol 125mg IVP given at 1848.
--- NOTE | 2019-12-04 18:49 | NUR ---
2L NS bolus currently infusing.
--- NOTE | 2019-12-04 18:53 | NUR ---
Epi gtt started at 0.5mcg/kg/min per Dr. Montelongo
[2019-12-04] MEDS ORDERED: SODIUM CHLORIDE 0.9% 1,000ML IVBOLUS ONE ×2 (19:00→23:00)
[2019-12-04] MEDS ORDERED: PROPOFOL 100 ML IV PRN (19:00)
[2019-12-04] MEDS ORDERED: EPINEPHRINE 10 MG in SODIUM CHLORIDE 0.9% 240 ML IV PRN (19:00)
[2019-12-04] MEDS ORDERED: ROCURONIUM 10 MG/ML,10ML IVPush ONE (19:00)
--- NOTE | 2019-12-04 19:05 | NUR ---
Dr. Montelongo inserting art line at this time.
--- NOTE | 2019-12-04 19:10 | NUR ---
CALLED INQUIRING ABOUT PT. WAS INFORMED HER PRESENCE IS REQUESTED AT THIS TIME
--- NOTE | 2019-12-04 19:10 | NUR ---
Art line inserted in R radial artery by Dr. Montelongo. Pt's BP 289/94 via art line. Epi gtt held per Dr. Montelongo.
[2019-12-04 19:11] LABS: BASOPHILS % (AUTO) 0 % (0-1); EOSINOPHILS % (AUTO) 0 % (1-7); LYMPHOCYTES # (AUTO) 0.44 x10^3/uL (1-3.4); LYMPHOCYTES % (AUTO) 5 % (22-44); MD NO; MEAN CORPUSCULAR HEMOGLOBIN 27.6 pg (27.5-34.5); MEAN CORPUSCULAR HGB CONC 32.3 g/dL (33.2-36.2); MEAN CORPUSCULAR VOLUME 85.4 fL (81-97); MONOCYTES # (AUTO) 0.46 x10^3/uL (0.2-0.8); MONOCYTES % (AUTO) 5 % (2-9); NEUTROPHILS # (AUTO) 8.78 x10^3/uL (1.8-6.8); NEUTROPHILS % (AUTO) 91 % (42-75); PLATELET COUNT 252 x10^3/uL (130-400); RED BLOOD COUNT 4.47 x10^6/uL (4.38-5.82); RED CELL DISTRIBUTION WIDTH 14.7 % (9.4-14.8)
--- NOTE | 2019-12-04 19:15 | NUR ---
Pt's art line BP 165/58. Epi gtt started again at 0.2mcg/kg/min
[2019-12-04 19:19] LABS: INTERNATIONAL NORMALIZED RATIO 0.94 (0.93-1.1)
[2019-12-04] MEDS ORDERED: MAGNESIUM SULFATE 8 MEQ/2 ML ONE (19:21)
[2019-12-04] MEDS ORDERED: SODIUM CHLORIDE 0.9%, 25ML ONE (19:21)
[2019-12-04] MEDS ORDERED: CODE BLUE RESPONSE XX ONE (19:21)
[2019-12-04 19:22] LABS: ALBUMIN 3.1 g/dL (3.4-5.0); ANION GAP 7 mmol/L (5-15); CALCIUM 7.6 mg/dL (8.5-10.1); CHLORIDE 98 mmol/L (98-107)
[2019-12-04 19:23] LABS: SALICYLATE LEVEL < 1.7 mg/dL (2.8-20.0)
[2019-12-04] MEDS ORDERED: CEFTRIAXONE PMX 1GM/50ML 50 ML ONE (19:23)
[2019-12-04 19:25] LABS: ALANINE AMINOTRANSFERASE 10 U/L (12-78); BILIRUBIN,TOTAL 0.5 mg/dL (0.2-1.0); CREATININE 6.64 mg/dL (0.7-1.3); TOTAL PROTEIN 6.7 g/dL (6.4-8.2); TROPONIN I 0.053 ng/mL (0.000-0.045)
--- NOTE | 2019-12-04 19:25 | NUR ---
Epi gtt held again per Dr. Montelongo
[2019-12-04] MEDS ORDERED: CEFTRIAXONE PMX 1GM/50ML 50 ML IV ONE (19:30)
[2019-12-04] MEDS ORDERED: AZITHROMYCIN 500 MG in SODIUM CHLORIDE 0.9% 250 ML IV ONE (19:30)
[2019-12-04 19:31] LABS: ALKALINE PHOSPHATASE 77 U/L (45-117); FREE T4 (FREE THYROXINE) 1.09 ng/dL (0.76-1.46)
--- NOTE | 2019-12-04 19:31 | NUR ---
Report to Yuan REECE.
--- NOTE | 2019-12-04 19:45 | NUR ---
ART LINE STARTED, EPI DRIP STARTED FOR BP MAP <65, MAP 58 CURRENTLY. EPI DRIP STARTED AT 0.05mcg/kg/min.
[2019-12-04] MEDS ORDERED: VASOPRESSIN 20 UNIT in SODIUM CHLORIDE 0.9% 99 ML IV SCH (19:53)
[2019-12-04] MEDS ORDERED: NOREPINEPHRINE 8 MG in SODIUM CHLORIDE 0.9% 242 ML IV PRN ×2 (20:00→22:34)
--- NOTE | 2019-12-04 20:13 | NUR ---
PT PREPPED FOR CT, PT PLACED ON PORTABLE MONITOR TO MONITOR ART LINE. RTX2 AT BEDSIDE FOR TRANSPORT.
--- NOTE | 2019-12-04 20:30 | NUR ---
SEDATION STARTED PT STARTING TO MOVE ARM. SOFT RESTRIANTS APPLIED TO BILAT WRISTS. ERMD AWARE, ORDER OBTAINED.
[2019-12-04] MEDS ORDERED: ACETAMINOPHEN 650 MG SUPP ONE (21:44)
[2019-12-04] MEDS ORDERED: ACETAMINOPHEN 650 MG SUPP PR PRN (22:00)
[2019-12-04] MEDS ORDERED: VASOPRESSIN 20 UNIT in SODIUM CHLORIDE 0.9% 99 ML IV PRN ×2 (22:34→23:00)
[2019-12-04] MEDS ORDERED: FAMOTIDINE 20 MG/2 ML IV SCH (23:00)
[2019-12-04] MEDS ORDERED: SODIUM CHLORIDE 0.9% 1,000 ML IV SCH (23:00)
[2019-12-04] MEDS ORDERED: PHARMACY MAY ADJ FOR RENAL FX MC SCH (23:00)
[2019-12-04] MEDS ORDERED: LIDOCAINE-MPF 1%, 2ML ENDO PRN (23:00)
[2019-12-04] MEDS ORDERED: SENNA/DOCUSATE TABLET NG PRN (23:00)
[2019-12-04] MEDS ORDERED: GLUCAGON 1 MG IM PRN (23:00)
[2019-12-04] MEDS: AZITHROMYCIN 500 MG in SODIUM CHLORIDE 0.9% 250 ML IV SCH (23:00)
[2019-12-04] MEDS ORDERED: FENTANYL PF 100 MCG/2ML IVPush PRN (23:00)
[2019-12-04] MEDS ORDERED: DEXTROSE 50%, 50ML SYRINGE IVPush PRN (23:00)
[2019-12-04] MEDS ORDERED: SENNA 176 MG/5 ML ORAL SOL NG PRN (23:00)
[2019-12-04] MEDS ORDERED: DEXTROSE 4 GM TAB.CHEW PO PRN (23:00)
[2019-12-04] MEDS ORDERED: LACTULOSE 20 GM/30 ML UDC NG PRN (23:00)
[2019-12-04] MEDS: ALBUTEROL/IPRATROPIUM 2.5MG/0.5MG, 3 ML INLINE SCH (23:20)
[2019-12-04 23:22] LABS: TROPONIN I 0.185 ng/mL (0.000-0.045)
[2019-12-04] MEDS ORDERED: FUROSEMIDE 100 MG in SODIUM CHLORIDE 0.9% 90 ML IV PRN (23:45)
[2019-12-04] MEDS: methylPREDNISolone SOD SUCC 125 MG/2 ML IVPush SCH (23:48)
[2019-12-04] MEDS: HEPARIN 5,000 UNITS/ML, 1ML SQ SCH (23:48)
[2019-12-05] MEDS ORDERED: FUROSEMIDE 20 MG/2 ML IV ONE
[2019-12-05] MEDS ORDERED: SODIUM CHLORIDE 0.9% IV SCH
[2019-12-05] MEDS ORDERED: POTASSIUM CHLORIDE PMX 100 ML IV ONE
[2019-12-05] MEDS ORDERED: FUROSEMIDE IV SCH
[2019-12-05] MEDS: PROPOFOL 100 ML IV PRN ×4 (00:55→21:36)
[2019-12-05] MEDS: NOREPINEPHRINE 8 MG in SODIUM CHLORIDE 0.9% 242 ML IV PRN ×2 (00:56→05:35)
[2019-12-05] MEDS ORDERED: SODIUM BICARBONATE 1 MEQ/ML, 50ML VIAL ONE (01:29)
[2019-12-05] MEDS ORDERED: SODIUM BICARB 8.4%, 50ML SYRINGE IVPush ONE (01:30)
[2019-12-05] MEDS: ALBUTEROL/IPRATROPIUM 2.5MG/0.5MG, 3 ML INLINE SCH ×6 (03:20→23:25)
[2019-12-05 04:00] VITALS: BP 101/43
[2019-12-05 04:28] LABS: MEAN CORPUSCULAR HEMOGLOBIN 27.7 pg (27.5-34.5); MEAN CORPUSCULAR HGB CONC 32.7 g/dL (33.2-36.2); MEAN CORPUSCULAR VOLUME 84.7 fL (81-97); PLATELET COUNT 234 x10^3/uL (130-400); RED BLOOD COUNT 4.62 x10^6/uL (4.38-5.82); RED CELL DISTRIBUTION WIDTH 15.1 % (9.4-14.8)
[2019-12-05 04:37] LABS: ANION GAP 25 mmol/L (5-15); CALCIUM 8.1 mg/dL (8.5-10.1); CHLORIDE 95 mmol/L (98-107)
[2019-12-05 04:43] LABS: ALANINE AMINOTRANSFERASE 12 U/L (12-78); ALKALINE PHOSPHATASE 77 U/L (45-117); BILIRUBIN,TOTAL 0.7 mg/dL (0.2-1.0); TOTAL PROTEIN 6.7 g/dL (6.4-8.2)
[2019-12-05 04:46] LABS: BASOPHILS # (AUTO) 0.05 x10^3/uL (0-0.1); BASOPHILS % (AUTO) 0 % (0-1); EOSINOPHILS # (AUTO) 0.02 x10^3/uL (0-0.4); EOSINOPHILS % (AUTO) 0 % (1-7); LYMPHOCYTES # (AUTO) 0.32 x10^3/uL (1-3.4); LYMPHOCYTES % (AUTO) 3 % (22-44); MD SCAN; MONOCYTES # (AUTO) 0.19 x10^3/uL (0.2-0.8); MONOCYTES % (AUTO) 2 % (2-9); NEUTROPHILS # (AUTO) 11.95 x10^3/uL (1.8-6.8); NEUTROPHILS % (AUTO) 95 % (42-75)
[2019-12-05] MEDS ORDERED: ETOMIDATE 20 MG/10 ML ONE (05:30)
[2019-12-05] MEDS ORDERED: EPINEPHRINE SYRINGE 0.1 MG/ML, 10ML ONE (05:30)
[2019-12-05] MEDS ORDERED: PROPOFOL 10 MG/ML, 100ML IV ONE (05:30)
[2019-12-05] MEDS ORDERED: PROPOFOL 10 MG/ML, 20ML ONE (05:30)
[2019-12-05] MEDS: methylPREDNISolone SOD SUCC 125 MG/2 ML IVPush SCH ×3 (05:39→23:05)
[2019-12-05] MEDS ORDERED: INSULIN LISPRO 100 UNITS/ML, PEN SQ-INSULIN SCH ×2 (07:00→07:30)
[2019-12-05] MEDS ORDERED: INSULIN INFUSION FOR ICU PROTOCOL XX PRN (10:00)
[2019-12-05] MEDS ORDERED: REGULAR INSULIN 100 UNITS in SODIUM CHLORIDE 0.9% 99 ML IV PRN (10:00)
[2019-12-05] MEDS: SODIUM CHLORIDE 0.9% 1,000 ML IV SCH (10:16)
[2019-12-05] MEDS: HEPARIN 5,000 UNITS/ML, 1ML SQ SCH ×3 (10:17→23:07)
[2019-12-05] MEDS: SODIUM CHLORIDE FLUSH 10ML SYR IVF SCH ×2 (10:18→21:37)
[2019-12-05 10:23] LABS: MICROSCOPIC INDICATED
[2019-12-05 10:32] LABS: AMPHETAMINE SCREEN, URINE Negative (Negative); BARBITURATE SCREEN, URINE Negative (Negative); BENZODIAZEPINE SCREEN, URINE Negative (Negative); CANNABINOID SCREEN, URINE Negative (Negative); CHLORIDE,URINE RANDOM 64 mmol/L; COCAINE SCREEN, URINE Negative (Negative); METHADONE SCREEN, URINE Negative (Negative); OPIATE SCREEN, URINE Negative (Negative); POTASSIUM,URINE RANDOM 37 mmol/L; SODIUM,URINE RANDOM 69 mmol/L
[2019-12-05 10:33] LABS: CULTURE INDICATED? YES
[2019-12-05 10:41] LABS: OSMOLALITY,URINE 345 mOsm/kg (500-850)
[2019-12-05] MEDS: BUDESONIDE 0.5 MG/2 ML INHA INH SCH ×2 (10:45→20:45)
[2019-12-05 10:55] LABS: TROPONIN I 0.169 ng/mL (0.000-0.045)
[2019-12-05 16:59] LABS: RAPID INFLUENZA A Negative (Negative); RAPID INFLUENZA B Negative (Negative)
[2019-12-05] MEDS: CEFTRIAXONE PMX 1GM/50ML 50 ML IV SCH (20:10)
[2019-12-05] MEDS: FAMOTIDINE 20 MG/2 ML IV SCH (20:10)
[2019-12-05] MEDS: AZITHROMYCIN 500 MG in SODIUM CHLORIDE 0.9% 250 ML IV SCH (23:07)
[2019-12-06] MEDS: PROPOFOL 100 ML IV PRN ×4 (01:35→22:21)
[2019-12-06] MEDS: ALBUTEROL/IPRATROPIUM 2.5MG/0.5MG, 3 ML INLINE SCH ×6 (03:18→22:54)
[2019-12-06 04:32] LABS: BASOPHILS # (AUTO) 0.03 x10^3/uL (0-0.1); BASOPHILS % (AUTO) 0 % (0-1); EOSINOPHILS % (AUTO) 0 % (1-7); LYMPHOCYTES # (AUTO) 0.48 x10^3/uL (1-3.4); LYMPHOCYTES % (AUTO) 4 % (22-44); MD NO; MEAN CORPUSCULAR HEMOGLOBIN 27.8 pg (27.5-34.5); MEAN CORPUSCULAR VOLUME 84.4 fL (81-97); MEAN PLATELET VOLUME 8.5 fL (7.4-10.4); MONOCYTES # (AUTO) 0.38 x10^3/uL (0.2-0.8); MONOCYTES % (AUTO) 3 % (2-9); NEUTROPHILS # (AUTO) 10.68 x10^3/uL (1.8-6.8); NEUTROPHILS % (AUTO) 92 % (42-75); PLATELET COUNT 223 x10^3/uL (130-400); RED BLOOD COUNT 4.41 x10^6/uL (4.38-5.82); RED CELL DISTRIBUTION WIDTH 15.8 % (9.4-14.8)
[2019-12-06 04:43] LABS: ALBUMIN 2.9 g/dL (3.4-5.0); ANION GAP 8 mmol/L (5-15); CALCIUM 8.9 mg/dL (8.5-10.1); CHLORIDE 99 mmol/L (98-107)
[2019-12-06 04:48] LABS: ALANINE AMINOTRANSFERASE 12 U/L (12-78); ALKALINE PHOSPHATASE 64 U/L (45-117); BILIRUBIN, DIRECT 0.2 mg/dL (0.1-0.2); BILIRUBIN,INDIRECT 0.4 mg/dL (0.0-2.0); BILIRUBIN,TOTAL 0.6 mg/dL (0.2-1.0); TOTAL PROTEIN 6.4 g/dL (6.4-8.2)
[2019-12-06] MEDS: methylPREDNISolone SOD SUCC 125 MG/2 ML IVPush SCH ×2 (04:59→20:45)
[2019-12-06] MEDS: HEPARIN 5,000 UNITS/ML, 1ML SQ SCH ×2 (06:31→15:27)
[2019-12-06] MEDS: BUDESONIDE 0.5 MG/2 ML INHA INH SCH ×2 (07:40→18:50)
[2019-12-06] MEDS ORDERED: INSULIN REGULAR 100 UNITS/ML, 3ML VIAL IV ONE (09:00)
[2019-12-06] MEDS ORDERED: REGULAR INSULIN 100 UNITS in SODIUM CHLORIDE 0.9% 99 ML IV PRN (09:00)
[2019-12-06] MEDS ORDERED: DEXTROSE 50%, 50ML SYRINGE IV PRN (09:00)
[2019-12-06] MEDS ORDERED: INSULIN GLARGINE 100 UNITS/ML, PEN SQ-INSULIN SCH (09:30)
[2019-12-06] MEDS: SODIUM CHLORIDE FLUSH 10ML SYR IVF SCH ×2 (10:16→20:46)
--- NOTE | 2019-12-06 10:37 | NUR ---
TF GOAL: w/ propofol: VITAL AF 1.2 @ 55ML/HR off propofol: VITAL AF 1.2 @ 60ML/HR
[2019-12-06] MEDS ORDERED: INSULIN LISPRO 100 UNITS/ML, PEN SQ-INSULIN SCH (11:00)
[2019-12-06] MEDS: INSULIN LISPRO 100 UNITS/ML, PEN SQ-INSULIN SCH ×2 (16:00→20:46)
[2019-12-06] MEDS: SODIUM CHLORIDE 0.9% 1,000 ML IV SCH (16:55)
[2019-12-06] MEDS: CEFTRIAXONE PMX 1GM/50ML 50 ML IV SCH (20:44)
[2019-12-06] MEDS: FAMOTIDINE 20 MG/2 ML IV SCH (20:45)
[2019-12-06] MEDS: INSULIN GLARGINE 100 UNITS/ML, PEN SQ-INSULIN SCH (20:46)
[2019-12-07] MEDS: AZITHROMYCIN 500 MG in SODIUM CHLORIDE 0.9% 250 ML IV SCH ×2 (00:15→23:48)
[2019-12-07] MEDS: HEPARIN 5,000 UNITS/ML, 1ML SQ SCH ×4 (00:15→23:48)
[2019-12-07] MEDS: PROPOFOL 100 ML IV PRN ×8 (01:31→21:52)
[2019-12-07] MEDS: ALBUTEROL/IPRATROPIUM 2.5MG/0.5MG, 3 ML INLINE SCH ×6 (02:43→22:27)
[2019-12-07 05:26] LABS: BASOPHILS # (AUTO) 0.01 x10^3/uL (0-0.1); BASOPHILS % (AUTO) 0 % (0-1); EOSINOPHILS # (AUTO) 0.01 x10^3/uL (0-0.4); EOSINOPHILS % (AUTO) 0 % (1-7); LYMPHOCYTES # (AUTO) 0.34 x10^3/uL (1-3.4); LYMPHOCYTES % (AUTO) 4 % (22-44); MD NO; MEAN CORPUSCULAR HEMOGLOBIN 27.8 pg (27.5-34.5); MEAN CORPUSCULAR HGB CONC 33.3 g/dL (33.2-36.2); MEAN CORPUSCULAR VOLUME 83.5 fL (81-97); MEAN PLATELET VOLUME 8.6 fL (7.4-10.4); MONOCYTES % (AUTO) 4 % (2-9); NEUTROPHILS # (AUTO) 8.92 x10^3/uL (1.8-6.8); NEUTROPHILS % (AUTO) 92 % (42-75); PLATELET COUNT 212 x10^3/uL (130-400); RED BLOOD COUNT 4.19 x10^6/uL (4.38-5.82); RED CELL DISTRIBUTION WIDTH 15.6 % (9.4-14.8)
[2019-12-07 05:28] LABS: ANION GAP 7 mmol/L (5-15); CALCIUM 8.2 mg/dL (8.5-10.1); CHLORIDE 102 mmol/L (98-107); CREATININE 4.24 mg/dL (0.7-1.3); TRIGLYCERIDES 273 mg/dL (50-200)
[2019-12-07] MEDS: INSULIN LISPRO 100 UNITS/ML, PEN SQ-INSULIN SCH ×4 (06:28→21:13)
[2019-12-07] MEDS: BUDESONIDE 0.5 MG/2 ML INHA INH SCH ×2 (07:30→22:27)
[2019-12-07] MEDS: methylPREDNISolone SOD SUCC 125 MG/2 ML IVPush SCH ×2 (08:11→16:12)
[2019-12-07] MEDS: SODIUM CHLORIDE FLUSH 10ML SYR IVF SCH ×2 (08:12→21:12)
[2019-12-07] MEDS: INSULIN GLARGINE 100 UNITS/ML, PEN SQ-INSULIN SCH ×2 (08:12→21:12)
[2019-12-07] MEDS: CEFTRIAXONE PMX 1GM/50ML 50 ML IV SCH (19:44)
[2019-12-07] MEDS: FAMOTIDINE 20 MG/2 ML IV SCH (21:12)
[2019-12-07] MEDS: SODIUM CHLORIDE 0.9% 1,000 ML IV SCH (23:51)
[2019-12-08] MEDS: PROPOFOL 100 ML IV PRN ×8 (00:37→22:17)
[2019-12-08] MEDS: ALBUTEROL/IPRATROPIUM 2.5MG/0.5MG, 3 ML INLINE SCH ×6 (03:04→22:09)
[2019-12-08] MEDS: methylPREDNISolone SOD SUCC 125 MG/2 ML IVPush SCH ×2 (03:57→15:13)
[2019-12-08 04:19] LABS: BASOPHILS # (AUTO) 0.01 x10^3/uL (0-0.1); BASOPHILS % (AUTO) 0 % (0-1); EOSINOPHILS % (AUTO) 0 % (1-7); LYMPHOCYTES % (AUTO) 7 % (22-44); MD NO; MEAN CORPUSCULAR HEMOGLOBIN 27.5 pg (27.5-34.5); MEAN CORPUSCULAR HGB CONC 32.8 g/dL (33.2-36.2); MEAN PLATELET VOLUME 8.7 fL (7.4-10.4); MONOCYTES # (AUTO) 0.65 x10^3/uL (0.2-0.8); MONOCYTES % (AUTO) 7 % (2-9); NEUTROPHILS # (AUTO) 7.73 x10^3/uL (1.8-6.8); NEUTROPHILS % (AUTO) 86 % (42-75); PLATELET COUNT 216 x10^3/uL (130-400); RED CELL DISTRIBUTION WIDTH 15.8 % (9.4-14.8)
[2019-12-08 04:27] LABS: ANION GAP 6 mmol/L (5-15); CALCIUM 8.3 mg/dL (8.5-10.1); CHLORIDE 104 mmol/L (98-107)
[2019-12-08] MEDS: INSULIN LISPRO 100 UNITS/ML, PEN SQ-INSULIN SCH ×4 (05:02→21:11)
[2019-12-08] MEDS: HEPARIN 5,000 UNITS/ML, 1ML SQ SCH ×3 (05:34→22:56)
[2019-12-08] MEDS: BUDESONIDE 0.5 MG/2 ML INHA INH SCH ×2 (07:47→18:57)
[2019-12-08] MEDS: INSULIN GLARGINE 100 UNITS/ML, PEN SQ-INSULIN SCH ×2 (08:54→21:13)
[2019-12-08] MEDS: SODIUM CHLORIDE FLUSH 10ML SYR IVF SCH ×2 (08:56→21:10)
[2019-12-08] MEDS: CEFTRIAXONE PMX 1GM/50ML 50 ML IV SCH (19:48)
[2019-12-08] MEDS: FAMOTIDINE 20 MG/2 ML IV SCH (21:10)
[2019-12-08] MEDS ORDERED: IPRATROPIUM 0.5 MG/2.5 ML INHA ONE (22:01)
[2019-12-08] MEDS ORDERED: ALBUTEROL SULFATE 2.5 MG/3 ML ONE (22:01)
[2019-12-08] MEDS: AZITHROMYCIN 500 MG in SODIUM CHLORIDE 0.9% 250 ML IV SCH (22:56)
[2019-12-09] MEDS: PROPOFOL 100 ML IV PRN ×6 (00:58→23:34)
[2019-12-09] MEDS: ALBUTEROL/IPRATROPIUM 2.5MG/0.5MG, 3 ML INLINE SCH ×6 (02:25→22:30)
[2019-12-09] MEDS: INSULIN LISPRO 100 UNITS/ML, PEN SQ-INSULIN SCH ×4 (02:53→20:39)
[2019-12-09] MEDS: methylPREDNISolone SOD SUCC 125 MG/2 ML IVPush SCH (03:55)
[2019-12-09 04:17] LABS: BASOPHILS # (AUTO) 0.01 x10^3/uL (0-0.1); BASOPHILS % (AUTO) 0 % (0-1); EOSINOPHILS # (AUTO) 0.01 x10^3/uL (0-0.4); EOSINOPHILS % (AUTO) 0 % (1-7); LYMPHOCYTES # (AUTO) 0.79 x10^3/uL (1-3.4); LYMPHOCYTES % (AUTO) 7 % (22-44); MD NO; MEAN CORPUSCULAR HEMOGLOBIN 27.3 pg (27.5-34.5); MEAN CORPUSCULAR HGB CONC 32.7 g/dL (33.2-36.2); MEAN CORPUSCULAR VOLUME 83.4 fL (81-97); MEAN PLATELET VOLUME 8.6 fL (7.4-10.4); MONOCYTES # (AUTO) 0.69 x10^3/uL (0.2-0.8); MONOCYTES % (AUTO) 6 % (2-9); NEUTROPHILS # (AUTO) 10.22 x10^3/uL (1.8-6.8); NEUTROPHILS % (AUTO) 87 % (42-75); PLATELET COUNT 237 x10^3/uL (130-400); RED BLOOD COUNT 4.86 x10^6/uL (4.38-5.82); RED CELL DISTRIBUTION WIDTH 15.6 % (9.4-14.8)
[2019-12-09 04:26] LABS: ANION GAP 6 mmol/L (5-15); CALCIUM 8.4 mg/dL (8.5-10.1); CHLORIDE 105 mmol/L (98-107); CREATININE 2.22 mg/dL (0.7-1.3)
[2019-12-09] MEDS: BUDESONIDE 0.5 MG/2 ML INHA INH SCH ×2 (07:15→18:30)
[2019-12-09] MEDS: HEPARIN 5,000 UNITS/ML, 1ML SQ SCH ×3 (07:42→23:27)
[2019-12-09] MEDS: INSULIN GLARGINE 100 UNITS/ML, PEN SQ-INSULIN SCH ×2 (07:43→20:39)
[2019-12-09] MEDS: SODIUM CHLORIDE FLUSH 10ML SYR IVF SCH ×2 (07:43→20:34)
[2019-12-09] MEDS: SODIUM CHLORIDE 0.9% 1,000 ML IV SCH (07:43)
[2019-12-09] MEDS ORDERED: hydrALAzine 20 MG/ML, 1ML IV PRN (09:30)
[2019-12-09] MEDS ORDERED: SCOPOLAMINE 1MG PATCH TD SCH (15:00)
[2019-12-09] MEDS: CEFTRIAXONE PMX 1GM/50ML 50 ML IV SCH (19:28)
[2019-12-09] MEDS: FAMOTIDINE 20 MG/2 ML IV SCH (20:33)
[2019-12-09] MEDS: AZITHROMYCIN 500 MG in SODIUM CHLORIDE 0.9% 250 ML IV SCH (23:27)
[2019-12-10] MEDS: ALBUTEROL/IPRATROPIUM 2.5MG/0.5MG, 3 ML INLINE SCH ×6 (02:40→23:00)
[2019-12-10] MEDS: PROPOFOL 100 ML IV PRN ×2 (02:52→06:33)
[2019-12-10 05:27] LABS: MEAN CORPUSCULAR HEMOGLOBIN 27.6 pg (27.5-34.5); MEAN CORPUSCULAR HGB CONC 33.2 g/dL (33.2-36.2); MEAN CORPUSCULAR VOLUME 83.1 fL (81-97); MEAN PLATELET VOLUME 8.9 fL (7.4-10.4); PLATELET COUNT 252 x10^3/uL (130-400); RED CELL DISTRIBUTION WIDTH 15.5 % (9.4-14.8)
[2019-12-10 05:37] LABS: ANION GAP 9 mmol/L (5-15); CALCIUM 8.6 mg/dL (8.5-10.1); CHLORIDE 104 mmol/L (98-107); CREATININE 2.25 mg/dL (0.7-1.3); TRIGLYCERIDES 387 mg/dL (50-200)
[2019-12-10 05:55] LABS: BASOPHILS # (AUTO) 0.02 x10^3/uL (0-0.1); BASOPHILS % (AUTO) 0 % (0-1); EOSINOPHILS # (AUTO) 0.06 x10^3/uL (0-0.4); EOSINOPHILS % (AUTO) 0 % (1-7); LYMPHOCYTES # (AUTO) 0.79 x10^3/uL (1-3.4); LYMPHOCYTES % (AUTO) 5 % (22-44); MD SCAN; MONOCYTES # (AUTO) 1.01 x10^3/uL (0.2-0.8); MONOCYTES % (AUTO) 7 % (2-9); NEUTROPHILS # (AUTO) 13.82 x10^3/uL (1.8-6.8); NEUTROPHILS % (AUTO) 88 % (42-75)
[2019-12-10] MEDS: INSULIN LISPRO 100 UNITS/ML, PEN SQ-INSULIN SCH ×4 (06:00→23:29)
[2019-12-10] MEDS: BUDESONIDE 0.5 MG/2 ML INHA INH SCH ×2 (06:55→19:00)
[2019-12-10] MEDS: SODIUM CHLORIDE FLUSH 10ML SYR IVF SCH ×2 (08:51→22:36)
[2019-12-10] MEDS: HEPARIN 5,000 UNITS/ML, 1ML SQ SCH ×2 (08:51→15:52)
[2019-12-10] MEDS ORDERED: DEXMEDETOMIDINE 200 MCG in SODIUM CHLORIDE 0.9% 48 ML IV PRN (09:00)
[2019-12-10] MEDS: INSULIN GLARGINE 100 UNITS/ML, PEN SQ-INSULIN SCH ×2 (09:02→23:30)
[2019-12-10] MEDS: BISACODYL 10 MG SUPP PR PRN (09:17)
[2019-12-10] MEDS: POLYETHYLENE GLYCOL 17 GM PACKET PO SCH (10:36)
[2019-12-10] MEDS: SENNA 176 MG/5 ML ORAL SOL NG SCH ×2 (10:36→22:36)
[2019-12-10] MEDS: FAMOTIDINE 20 MG/2 ML IV SCH (22:36)
[2019-12-10] MEDS: CEFTRIAXONE PMX 1GM/50ML 50 ML IV SCH (22:36)
[2019-12-10] MEDS: AZITHROMYCIN 500 MG in SODIUM CHLORIDE 0.9% 250 ML IV SCH (23:29)
[2019-12-11] MEDS: HEPARIN 5,000 UNITS/ML, 1ML SQ SCH ×3 (00:52→16:07)
[2019-12-11] MEDS ORDERED: ARTIFICIAL TEARS 15 DROP/ML BOTTLE EACHEYE PRN (02:00)
[2019-12-11] MEDS: ALBUTEROL/IPRATROPIUM 2.5MG/0.5MG, 3 ML INLINE SCH ×6 (02:30→22:35)
[2019-12-11 04:28] LABS: ANION GAP 10 mmol/L (5-15); CALCIUM 9.2 mg/dL (8.5-10.1); CHLORIDE 103 mmol/L (98-107); CREATININE 2.29 mg/dL (0.7-1.3)
[2019-12-11 04:31] LABS: MEAN CORPUSCULAR HEMOGLOBIN 27.2 pg (27.5-34.5); MEAN CORPUSCULAR HGB CONC 32.4 g/dL (33.2-36.2); MEAN CORPUSCULAR VOLUME 83.9 fL (81-97); MEAN PLATELET VOLUME 8.5 fL (7.4-10.4); PLATELET COUNT 344 x10^3/uL (130-400); RED BLOOD COUNT 5.41 x10^6/uL (4.38-5.82); RED CELL DISTRIBUTION WIDTH 15.8 % (9.4-14.8)
[2019-12-11 04:59] LABS: BASOPHILS # (AUTO) 0.02 x10^3/uL (0-0.1); BASOPHILS % (AUTO) 0 % (0-1); EOSINOPHILS # (AUTO) 0.19 x10^3/uL (0-0.4); EOSINOPHILS % (AUTO) 1 % (1-7); LYMPHOCYTES # (AUTO) 1.01 x10^3/uL (1-3.4); LYMPHOCYTES % (AUTO) 7 % (22-44); MD SCAN; MONOCYTES # (AUTO) 0.72 x10^3/uL (0.2-0.8); MONOCYTES % (AUTO) 5 % (2-9); NEUTROPHILS # (AUTO) 13.61 x10^3/uL (1.8-6.8); NEUTROPHILS % (AUTO) 88 % (42-75)
[2019-12-11] MEDS: INSULIN LISPRO 100 UNITS/ML, PEN SQ-INSULIN SCH ×4 (05:51→20:41)
[2019-12-11] MEDS: BUDESONIDE 0.5 MG/2 ML INHA INH SCH ×2 (06:45→19:00)
[2019-12-11] MEDS ORDERED: FUROSEMIDE 40 MG/4 ML IV ONE (08:00)
[2019-12-11] MEDS: SODIUM CHLORIDE FLUSH 10ML SYR IVF SCH ×2 (08:55→20:13)
[2019-12-11] MEDS: POLYETHYLENE GLYCOL 17 GM PACKET PO SCH (08:55)
[2019-12-11] MEDS: SENNA 176 MG/5 ML ORAL SOL NG SCH ×2 (10:28→20:14)
[2019-12-11] MEDS: BISACODYL 10 MG SUPP PR PRN (11:56)
[2019-12-11] MEDS: INSULIN GLARGINE 100 UNITS/ML, PEN SQ-INSULIN SCH ×2 (12:11→20:41)
[2019-12-11] MEDS: FAMOTIDINE 20 MG/2 ML IV SCH (20:12)
[2019-12-11] MEDS: CEFTRIAXONE PMX 1GM/50ML 50 ML IV SCH (20:13)
[2019-12-11] MEDS ORDERED: DIPHENHYDRAMINE 12.5MG/5ML, 10ML UDC PO PRN (21:00)
[2019-12-12] MEDS: HEPARIN 5,000 UNITS/ML, 1ML SQ SCH ×3 (00:35→17:41)
[2019-12-12] MEDS: AZITHROMYCIN 500 MG in SODIUM CHLORIDE 0.9% 250 ML IV SCH ×2 (00:35→23:08)
[2019-12-12] MEDS: ALBUTEROL/IPRATROPIUM 2.5MG/0.5MG, 3 ML INLINE SCH ×6 (02:50→23:00)
[2019-12-12 04:12] LABS: MEAN CORPUSCULAR HEMOGLOBIN 27.3 pg (27.5-34.5); MEAN CORPUSCULAR HGB CONC 32.7 g/dL (33.2-36.2); MEAN CORPUSCULAR VOLUME 83.5 fL (81-97); MEAN PLATELET VOLUME 8.2 fL (7.4-10.4); PLATELET COUNT 345 x10^3/uL (130-400); RED BLOOD COUNT 4.99 x10^6/uL (4.38-5.82)
[2019-12-12 04:22] LABS: ANION GAP 11 mmol/L (5-15); CALCIUM 9.1 mg/dL (8.5-10.1); CHLORIDE 105 mmol/L (98-107); CREATININE 3.04 mg/dL (0.7-1.3)
[2019-12-12] MEDS: INSULIN LISPRO 100 UNITS/ML, PEN SQ-INSULIN SCH ×4 (04:53→21:23)
[2019-12-12 04:54] LABS: MD YES
[2019-12-12 04:58] LABS: BAND#(MANUAL) 0.12 x10^3/uL; BANDS%(MANUAL) 1 % (0-7); EOS#(MANUAL) 0.12 x10^3/uL (0.0-0.4); EOS% (MANUAL) 1 % (1-7); LYMPH#(MANUAL) 1.38 x10^3/uL (1-3.4); LYMPHS% (MANUAL) 12 % (22-44); METAMYELOCYTES# (MANUAL) 0.12 x10^3/uL (0-0); METAMYELOCYTES% (MANUAL) 1 % (0-1); MONOS#(MANUAL) 0.23 x10^3/uL (0.3-2.7); MONOS% (MANUAL) 2 % (2-9); MYELOCYTES# (MANUAL) 0.23 x10^3/uL (0-0); MYELOCYTES% (MANUAL) 2 % (0-0); SEG#(MANUAL) 9.32 x10^3/uL (1.8-6.8); SEGS% (MANUAL) 81 % (42-75)
[2019-12-12 05:00] LABS: <PLATELET ESTIMATE> ADEQUATE; ANISOCYTOSIS 1+; LARGE PLATELETS 1+; POLYCHROMASIA 1+
[2019-12-12] MEDS: BUDESONIDE 0.5 MG/2 ML INHA INH SCH ×2 (07:06→19:40)
[2019-12-12] MEDS: POLYETHYLENE GLYCOL 17 GM PACKET PO SCH (09:00)
[2019-12-12] MEDS: SENNA 176 MG/5 ML ORAL SOL NG SCH (09:00)
[2019-12-12] MEDS: SODIUM CHLORIDE FLUSH 10ML SYR IVF SCH ×2 (10:45→21:01)
[2019-12-12] MEDS: INSULIN GLARGINE 100 UNITS/ML, PEN SQ-INSULIN SCH ×2 (10:46→21:23)
[2019-12-12] MEDS: FUROSEMIDE 40 MG/4 ML IV SCH ×2 (11:44→21:01)
[2019-12-12] MEDS: CEFTRIAXONE PMX 1GM/50ML 50 ML IV SCH (20:14)
[2019-12-12] MEDS: FAMOTIDINE 20 MG TABLET PO SCH (21:00)
[2019-12-13] MEDS: HEPARIN 5,000 UNITS/ML, 1ML SQ SCH ×3 (02:35→18:26)
[2019-12-13] MEDS: ALBUTEROL/IPRATROPIUM 2.5MG/0.5MG, 3 ML INLINE SCH ×2 (03:00→07:10)
[2019-12-13 04:33] LABS: BASOPHILS # (AUTO) 0.02 x10^3/uL (0-0.1); BASOPHILS % (AUTO) 0 % (0-1); EOSINOPHILS # (AUTO) 0.29 x10^3/uL (0-0.4); EOSINOPHILS % (AUTO) 3 % (1-7); LYMPHOCYTES # (AUTO) 1.09 x10^3/uL (1-3.4); LYMPHOCYTES % (AUTO) 11 % (22-44); MD NO; MEAN CORPUSCULAR HEMOGLOBIN 27.5 pg (27.5-34.5); MEAN CORPUSCULAR VOLUME 83.2 fL (81-97); MEAN PLATELET VOLUME 8.3 fL (7.4-10.4); MONOCYTES # (AUTO) 0.84 x10^3/uL (0.2-0.8); MONOCYTES % (AUTO) 8 % (2-9); NEUTROPHILS # (AUTO) 7.88 x10^3/uL (1.8-6.8); NEUTROPHILS % (AUTO) 78 % (42-75); PLATELET COUNT 380 x10^3/uL (130-400); RED BLOOD COUNT 4.84 x10^6/uL (4.38-5.82); RED CELL DISTRIBUTION WIDTH 15.5 % (9.4-14.8)
[2019-12-13 04:44] LABS: ANION GAP 9 mmol/L (5-15); CALCIUM 9.3 mg/dL (8.5-10.1); CHLORIDE 100 mmol/L (98-107)
[2019-12-13] MEDS: INSULIN LISPRO 100 UNITS/ML, PEN SQ-INSULIN SCH ×4 (07:00→20:40)
[2019-12-13] MEDS ORDERED: POTASSIUM CHLORIDE 20 MEQ TAB.ER.PRT PO ONE (07:30)
[2019-12-13] MEDS: POLYETHYLENE GLYCOL 17 GM PACKET PO SCH (08:13)
[2019-12-13] MEDS: FUROSEMIDE 40 MG/4 ML IV SCH ×3 (08:31→20:39)
[2019-12-13] MEDS: SODIUM CHLORIDE FLUSH 10ML SYR IVF SCH ×2 (08:59→20:39)
[2019-12-13] MEDS: BUDESONIDE 0.5 MG/2 ML INHA INH SCH ×2 (09:00→20:19)
[2019-12-13] MEDS: INSULIN GLARGINE 100 UNITS/ML, PEN SQ-INSULIN SCH ×2 (09:39→20:40)
[2019-12-13] MEDS: ALBUTEROL/IPRATROPIUM 2.5MG/0.5MG, 3 ML NPPB SCH ×2 (14:25→20:19)
[2019-12-13] MEDS: FAMOTIDINE 20 MG TABLET PO SCH (20:39)
[2019-12-13 21:40] VITALS: BP 125/77
[2019-12-14] MEDS: ALBUTEROL/IPRATROPIUM 2.5MG/0.5MG, 3 ML NPPB SCH ×3 (01:58→21:00)
[2019-12-14 02:19] VITALS: BP 104/67
[2019-12-14] MEDS: HEPARIN 5,000 UNITS/ML, 1ML SQ SCH ×3 (02:31→17:39)
[2019-12-14] MEDS: INSULIN LISPRO 100 UNITS/ML, PEN SQ-INSULIN SCH ×4 (07:49→21:00)
[2019-12-14] MEDS: BUDESONIDE 0.5 MG/2 ML INHA INH SCH ×2 (08:05→21:20)
[2019-12-14 08:10] VITALS: BP 124/76
[2019-12-14 09:11] LABS: ANION GAP 10 mmol/L (5-15); CALCIUM 9.4 mg/dL (8.5-10.1); CHLORIDE 101 mmol/L (98-107); CREATININE 2.68 mg/dL (0.7-1.3)
[2019-12-14] MEDS: SODIUM CHLORIDE FLUSH 10ML SYR IVF SCH ×2 (09:21→20:48)
[2019-12-14] MEDS: FUROSEMIDE 40 MG/4 ML IV SCH ×2 (09:22→20:48)
[2019-12-14] MEDS: POLYETHYLENE GLYCOL 17 GM PACKET PO SCH (09:22)
[2019-12-14] MEDS: INSULIN GLARGINE 100 UNITS/ML, PEN SQ-INSULIN SCH ×2 (09:23→23:30)
[2019-12-14 15:59] VITALS: BP 116/72
[2019-12-14 19:25] VITALS: BP 149/76
[2019-12-14] MEDS: FAMOTIDINE 20 MG TABLET PO SCH (20:47)
[2019-12-15 00:04] VITALS: BP 103/62
[2019-12-15 02:01] VITALS: BP 109/66
[2019-12-15] MEDS: HEPARIN 5,000 UNITS/ML, 1ML SQ SCH ×3 (02:02→18:35)
[2019-12-15 04:44] LABS: BASOPHILS # (AUTO) 0.03 x10^3/uL (0-0.1); BASOPHILS % (AUTO) 0 % (0-1); EOSINOPHILS # (AUTO) 0.36 x10^3/uL (0-0.4); EOSINOPHILS % (AUTO) 3 % (1-7); LYMPHOCYTES # (AUTO) 1.27 x10^3/uL (1-3.4); LYMPHOCYTES % (AUTO) 11 % (22-44); MD NO; MEAN CORPUSCULAR HEMOGLOBIN 27.7 pg (27.5-34.5); MEAN CORPUSCULAR HGB CONC 33.3 g/dL (33.2-36.2); MEAN CORPUSCULAR VOLUME 83.1 fL (81-97); MEAN PLATELET VOLUME 7.9 fL (7.4-10.4); MONOCYTES # (AUTO) 0.94 x10^3/uL (0.2-0.8); MONOCYTES % (AUTO) 8 % (2-9); NEUTROPHILS # (AUTO) 8.76 x10^3/uL (1.8-6.8); NEUTROPHILS % (AUTO) 77 % (42-75); PLATELET COUNT 406 x10^3/uL (130-400); RED BLOOD COUNT 5.05 x10^6/uL (4.38-5.82); RED CELL DISTRIBUTION WIDTH 15.3 % (9.4-14.8)
[2019-12-15 05:00] LABS: CHLORIDE 101 mmol/L (98-107)
[2019-12-15 05:07] LABS: ALANINE AMINOTRANSFERASE 27 U/L (12-78); ALBUMIN 3.2 g/dL (3.4-5.0); ALKALINE PHOSPHATASE 75 U/L (45-117); ANION GAP 9 mmol/L (5-15); BILIRUBIN,TOTAL 0.6 mg/dL (0.2-1.0); CALCIUM 9.6 mg/dL (8.5-10.1); CREATININE 2.43 mg/dL (0.7-1.3); TOTAL PROTEIN 7.6 g/dL (6.4-8.2)
[2019-12-15] MEDS: INSULIN LISPRO 100 UNITS/ML, PEN SQ-INSULIN SCH ×4 (07:00→21:52)
[2019-12-15] MEDS: INSULIN GLARGINE 100 UNITS/ML, PEN SQ-INSULIN SCH ×2 (08:53→21:34)
[2019-12-15] MEDS: POLYETHYLENE GLYCOL 17 GM PACKET PO SCH (08:54)
[2019-12-15] MEDS: SODIUM CHLORIDE FLUSH 10ML SYR IVF SCH ×2 (08:54→21:34)
[2019-12-15] MEDS: FUROSEMIDE 40 MG/4 ML IV SCH ×2 (08:55→21:33)
[2019-12-15] MEDS: ALBUTEROL/IPRATROPIUM 2.5MG/0.5MG, 3 ML NPPB SCH ×2 (09:23→18:52)
[2019-12-15] MEDS: BUDESONIDE 0.5 MG/2 ML INHA INH SCH ×2 (09:23→18:52)
[2019-12-15 12:25] VITALS: BP 127/76
[2019-12-15 19:23] VITALS: BP 106/67
[2019-12-15] MEDS: FAMOTIDINE 20 MG TABLET PO SCH (21:33)
[2019-12-16 02:13] VITALS: BP 106/70
[2019-12-16] MEDS: HEPARIN 5,000 UNITS/ML, 1ML SQ SCH ×3 (02:17→18:00)
[2019-12-16] MEDS: INSULIN LISPRO 100 UNITS/ML, PEN SQ-INSULIN SCH ×3 (07:00→16:06)
[2019-12-16 08:21] VITALS: BP 100/65
[2019-12-16] MEDS: POLYETHYLENE GLYCOL 17 GM PACKET PO SCH (08:42)
[2019-12-16] MEDS: FUROSEMIDE 40 MG/4 ML IV SCH (08:43)
[2019-12-16] MEDS: SODIUM CHLORIDE FLUSH 10ML SYR IVF SCH (08:43)
[2019-12-16] MEDS: INSULIN GLARGINE 100 UNITS/ML, PEN SQ-INSULIN SCH (08:44)
[2019-12-16] MEDS: BUDESONIDE 0.5 MG/2 ML INHA INH SCH (09:33)
[2019-12-16] MEDS: ALBUTEROL/IPRATROPIUM 2.5MG/0.5MG, 3 ML NPPB SCH (09:33)
[2019-12-16 13:31] VITALS: BP 98/65
[2019-12-16] MEDS ORDERED: INSU100I13 SQ-INSULIN (13:39)
[2019-12-16] MEDS ORDERED: INSU100I11 SQ-INSULIN (13:39)
== END 2019-12-16 18:27 | disposition home health service (06) | DRG 870 ==
LOC: ED 18:52 → EDIP 20:33 → ICU 22:12 → 3N 12-13 21:46
PROVIDERS: ADMIT Family Medicine; ATTEND Internal Medicine
PROC: 02HV33Z Insertion of Infusion Device into Superior Vena Cava, Percutaneous Approach (ICD-10-PCS; principal; 2019-12-04)
PROC: 5A1955Z Respiratory Ventilation, Greater than 96 Consecutive Hours (ICD-10-PCS; 2019-12-04)
PROC: 0BH17EZ Insertion of Endotracheal Airway into Trachea, Via Natural or Artificial Opening (ICD-10-PCS; 2019-12-04)
PROC: 02HV33Z Insertion of Infusion Device into Superior Vena Cava, Percutaneous Approach (ICD-10-PCS; 2019-12-05)
PROC: B548ZZA Ultrasonography of Superior Vena Cava, Guidance (ICD-10-PCS; 2019-12-05)
PROC: 5A1D70Z Performance of Urinary Filtration, Intermittent, Less than 6 Hours Per Day (ICD-10-PCS; 2019-12-05)
PROC: 5A1D70Z Performance of Urinary Filtration, Intermittent, Less than 6 Hours Per Day (ICD-10-PCS; 2019-12-06)
PROC: 5A1D70Z Performance of Urinary Filtration, Intermittent, Less than 6 Hours Per Day (ICD-10-PCS; 2019-12-08)
PROC: 5A1D70Z Performance of Urinary Filtration, Intermittent, Less than 6 Hours Per Day (ICD-10-PCS; 2019-12-09)
PROC: 5A1D70Z Performance of Urinary Filtration, Intermittent, Less than 6 Hours Per Day (ICD-10-PCS; 2019-12-10)
DX: A41.9 Sepsis, unspecified organism (principal); R65.21 Severe sepsis with septic shock; R57.0 Cardiogenic shock; N17.0 Acute kidney failure with tubular necrosis; J18.9 Pneumonia, unspecified organism; I50.43 Acute on chronic combined systolic (congestive) and diastolic (congestive) heart failure; J96.21 Acute and chronic respiratory failure with hypoxia; J96.22 Acute and chronic respiratory failure with hypercapnia; G93.41 Metabolic encephalopathy; I21.A1 Myocardial infarction type 2; J44.0 Chronic obstructive pulmonary disease with (acute) lower respiratory infection; E87.2 Acidosis; Z99.11 Dependence on respirator [ventilator] status; I11.0 Hypertensive heart disease with heart failure; E66.01 Morbid (severe) obesity due to excess calories; G47.33 Obstructive sleep apnea (adult) (pediatric); I27.81 Cor pulmonale (chronic); G62.9 Polyneuropathy, unspecified; E78.5 Hyperlipidemia, unspecified; M06.9 Rheumatoid arthritis, unspecified; I27.21 Secondary pulmonary arterial hypertension; R13.10 Dysphagia, unspecified; E11.65 Type 2 diabetes mellitus with hyperglycemia; Z99.81 Dependence on supplemental oxygen; Z82.49 Family history of ischemic heart disease and other diseases of the circulatory system; Z83.3 Family history of diabetes mellitus; Z91.14 Patient's other noncompliance with medication regimen; Z86.73 Personal history of transient ischemic attack (TIA), and cerebral infarction without residual deficits
CPT/HCPCS: 31500; 36415; 36556; 36600; 77001; 87400; 96374; 99291; 99292; J3490; J7611; J7620; J7626; 70450; 71045; 76770; 80048; 80053; 80076; 80307; 81001; 82140; 82436; 82533; 82803; 82947; 82962; 83036; 83605; 83735; 83935; 84100; 84133; 84300; 84439; 84443; 84478; 84484; 85025; 85610; 86704; 86706; 87040; 87070; 87081; 87086; 87205; 87340; 90935; 93005; 93306; 94002; 94003; 94150; 94640; G0378; J0171; J0456; J0696; J1644; J1815; J1940; J2704; J3010; J3475; J3480; C1751; J0360; J1642; J2930; J7030; J7050

== ENCOUNTER 2020-02-09 20:51 | Inpatient (IN) | payer MEDICAID ==
[~2020-02-09] VITALS: Ht 167.6 cm; Wt 103.2 kg
[~2020-02-09 20:51] MED LIST changes: +ETOMIDATE 20 MG/10 ML ONE; +INSU100I11 SQ-INSULIN; +INSU100I13 SQ-INSULIN; +MIDAZOLAM 1 MG/ML, 5ML ONE; +PROPOFOL 10 MG/ML, 100ML IV ONE; +SUCCINYLCHOLINE 20 MG/ML, 10ML ONE
[2020-02-09] MEDS ORDERED: PROPOFOL 100 ML IV PRN (21:23)
[2020-02-09] MEDS ORDERED: SUCCINYLCHOLINE 20 MG/ML, 10ML IVPush ONE (21:30)
[2020-02-09] MEDS ORDERED: NITROGLYCERIN OINT 2%, 1GM TP ONE (21:30)
[2020-02-09] MEDS ORDERED: ETOMIDATE 20 MG/10 ML IV ONE (21:30)
[2020-02-09] MEDS ORDERED: SODIUM CHLORIDE FLUSH 10ML SYR IVF ONE (21:30)
--- NOTE | 2020-02-09 22:02 | NUR ---
2039 - PT BIBA FROM HOME FOR HYPOPXIA. PT SPO2 88% ON RA. PT IS NON COMPLIANT C HOME O2, PLACED ON 6L NC, SPO2 INCRASED TO 95% ON ARRIVAL TO ER, PT C DECRASED MENTATION. GCS 9. PER EMS, THEY WERE AT PTS HOME EARLIER TODAY, FOUND PT OFF HOME O2, SPO2 70'S. PLACED ON NC, PT BECAME A&OX, SIGNED OFF TRANSPORT AMA. 2100 - 8.0 TUBE, 25@ LIP LINE. +BS, XRAY TO CONFIRM. AC/VC 22/500/5/100% STARTED ON PROPOFOL GTT, PT CONTINUES TO BITE AT TUBE, TITRATING GTT. PT ALSO HAVING DECREASED SPO2. RT AT BS, SUCTIONING & INCREADING PEEP. 2129 - PTS NEW SETTINGS 20/480/14/100% SPO2 88% 16F OG PLACED, +GASTRIC RETURN. XRAY TO CONFIRM. 16 F BARCENAS PLACED. +URINE RETURN, SAMPLE OBTAINED & SENT. PHLEB AT BS, 2ND SENT OF CULTURES OBTAINED C ABG. 2214 - PTS BP REMAINS LOW C PROPOFOL GTTMD AT BS, SWITCHED TO VERSED GTT. PT CONTINUES TO [place].
--- NOTE | 2020-02-09 22:10 | NUR ---
PT'S DAUGHTER CALLED FOR UPDATE. INFORMED DAUGHTER THAT PRIMARY RN WILL BE NOTIFIED. DAUGHTER: RANDI JANG, 08/07/1984, TEL [phone]
[2020-02-09 22:20] LABS: BASOPHILS # (AUTO) 0.01 x10^3/uL (0-0.1); BASOPHILS % (AUTO) 0 % (0-1); EOSINOPHILS # (AUTO) 0.01 x10^3/uL (0-0.4); EOSINOPHILS % (AUTO) 0 % (1-7); LYMPHOCYTES # (AUTO) 0.61 x10^3/uL (1-3.4); LYMPHOCYTES % (AUTO) 9 % (22-44); MD NO; MEAN CORPUSCULAR HEMOGLOBIN 26.9 pg (27.5-34.5); MEAN CORPUSCULAR HGB CONC 31.6 g/dL (33.2-36.2); MEAN PLATELET VOLUME 7.4 fL (7.4-10.4); MONOCYTES # (AUTO) 0.47 x10^3/uL (0.2-0.8); MONOCYTES % (AUTO) 7 % (2-9); NEUTROPHILS # (AUTO) 5.46 x10^3/uL (1.8-6.8); NEUTROPHILS % (AUTO) 83 % (42-75); PLATELET COUNT 246 x10^3/uL (130-400); RED BLOOD COUNT 4.38 x10^6/uL (4.38-5.82); RED CELL DISTRIBUTION WIDTH 15.6 % (9.4-14.8)
[2020-02-09 22:28] LABS: ALBUMIN 3.4 g/dL (3.4-5.0); ANION GAP 2 mmol/L (5-15); CALCIUM 8.8 mg/dL (8.5-10.1); CHLORIDE 96 mmol/L (98-107); CREATININE 2.13 mg/dL (0.7-1.3)
--- NOTE | 2020-02-09 22:28 | NUR ---
"JAMIE" FROM LAB CALLED RE: ABG O2 SAT READING. STATED THEY RAN THE TEST TWICE. RESULTS: 80.6 AND 79. JAMIE ASKED IF SHE SHOULD RELEASE THE RESULT. INFORMED HER I'D ASK TERESA, PRIMARY RN. TERESA BUSY WITH PT IN ISO ROOM. INFORMED JAMIE I'D CONSULT DR LARKIN. CALL PLACED; ERP NOT CURRENTLY AVAILABLE.
[2020-02-09] MEDS ORDERED: MIDAZOLAM HCL 50 MG in SODIUM CHLORIDE 0.9% 40 ML IV PRN (22:30)
[2020-02-09 22:32] LABS: TROPONIN I 0.059 ng/mL (0.000-0.045)
--- NOTE | 2020-02-09 22:34 | NUR ---
JAMIE CALLED BACK TO ASK ABOUT RELEASING ABG O2 SAT RESULT; SPOKE TO SHANELL SAUCEDO; RESULT TO BE RELEASED.
[2020-02-09] MEDS ORDERED: ERGO500017 PO (22:35)
[2020-02-09] MEDS ORDERED: MACI10TA PO (22:35)
[2020-02-09] MEDS ORDERED: SPIR25TA5 PO (22:35)
[2020-02-09] MEDS ORDERED: LISI-167 PO (22:35)
[2020-02-09] MEDS ORDERED: CARV6.252 PO (22:35)
[2020-02-09] MEDS ORDERED: METO5TAB5 PO (22:35)
[2020-02-09] MEDS ORDERED: METF500T17 PO (22:35)
[2020-02-09] MEDS ORDERED: GLIP5TAB10 PO (22:35)
[2020-02-09] MEDS ORDERED: SILD20TA PO (22:35)
--- NOTE | 2020-02-09 22:41 | NUR ---
VENT CHANGES R/T ABG... 25/500/15/100%
[2020-02-09] MEDS ORDERED: VANCOMYCIN 2,500 MG in SODIUM CHLORIDE 0.9% 500 ML IV ONE (22:48)
[2020-02-09] MEDS ORDERED: VANCOMYCIN PER PHARMACY MC ONE (23:00)
[2020-02-09] MEDS ORDERED: CEFEPIME 2 GM in DEXTROSE 5% 100 ML IV ONE (23:00)
--- NOTE | 2020-02-09 23:12 | NUR ---
STARTED ON ABX TO R HAND. VERSED CONTINES TO INFUSE TO L AC. NEW VENT SETTINGS... //100%
[2020-02-09 23:16] LABS: MICROSCOPIC INDICATED
--- NOTE | 2020-02-09 23:27 | NUR ---
PT BITING AT TUBE, SUCTIONED, ADMITTING AT BS. PLAN FOR INCREASED SEDATION.
[2020-02-09 23:31] LABS: CULTURE INDICATED? NO
[2020-02-09] MEDS ORDERED: FENTANYL PF 100 MCG/2ML ONE (23:31)
--- NOTE | 2020-02-09 23:35 | NUR ---
150CC CLOUDY YELLOW URINE.
[2020-02-09] MEDS: FENTANYL PF 100 MCG/2ML IVPush PRN ×2 (23:36→23:49)
[2020-02-10] MEDS ORDERED: ACETAMINOPHEN 325 MG TABLET PO/NG PRN
[2020-02-10] MEDS ORDERED: PHARMACY MAY ADJ FOR RENAL FX MC PRN
[2020-02-10] MEDS ORDERED: ONDANSETRON 2MG/ML, 2ML IVPush PRN
[2020-02-10] MEDS ORDERED: INSULIN LISPRO 100 UNITS/ML, PEN SQ-INSULIN SCH
[2020-02-10] MEDS ORDERED: HEPARIN 5,000 UNITS/ML, 1ML SQ SCH
[2020-02-10] MEDS ORDERED: LABETALOL 5MG/ML, 20ML IVPush PRN
[2020-02-10] MEDS ORDERED: NOREPINEPHRINE 8 MG in SODIUM CHLORIDE 0.9% 242 ML IV PRN (00:38)
--- NOTE | 2020-02-10 00:38 | NUR ---
DAUGHTER, RANDI, UPDATED C PTS STATUS & PLAN OF CARE.
[2020-02-10 00:42] LABS: ALBUMIN 3.4 g/dL (3.4-5.0); BILIRUBIN, DIRECT 0.2 mg/dL (0.1-0.2)
[2020-02-10 00:52] LABS: BILIRUBIN,INDIRECT 0.3 mg/dL (0.0-2.0); BILIRUBIN,TOTAL 0.5 mg/dL (0.2-1.0); TOTAL PROTEIN 6.8 g/dL (6.4-8.2)
[2020-02-10] MEDS: FAMOTIDINE 20 MG/2 ML IVPush SCH ×2 (00:59→09:59)
[2020-02-10] MEDS ORDERED: DEXTROSE 50%, 50ML SYRINGE IVPush PRN (01:00)
[2020-02-10] MEDS: HEPARIN 5,000 UNITS/ML, 1ML SQ SCH ×3 (01:00→16:44)
[2020-02-10] MEDS ORDERED: LACTULOSE 20 GM/30 ML UDC NG PRN (01:00)
[2020-02-10] MEDS ORDERED: DEXTROSE 4 GM TAB.CHEW PO PRN (01:00)
[2020-02-10] MEDS ORDERED: LIDOCAINE-MPF 1%, 2ML ENDO PRN (01:00)
[2020-02-10] MEDS ORDERED: SENNA/DOCUSATE TABLET NG PRN (01:00)
[2020-02-10] MEDS ORDERED: ACETAMINOPHEN 650 MG/20.3 ML UDC PO/NG PRN (01:00)
[2020-02-10] MEDS ORDERED: PHARMACY MAY ADJ FOR RENAL FX MC SCH (01:00)
[2020-02-10] MEDS ORDERED: SENNA 176 MG/5 ML ORAL SOL NG PRN (01:00)
[2020-02-10] MEDS ORDERED: FENTANYL PF 100 MCG/2ML IVPush PRN (01:00)
[2020-02-10] MEDS ORDERED: GLUCAGON 1 MG IM PRN (01:00)
[2020-02-10] MEDS ORDERED: BISACODYL 10 MG SUPP PR PRN (01:00)
[2020-02-10] MEDS ORDERED: NOREPINEPHRINE 1 MG/ML, 4ML ONE (01:27)
[2020-02-10] MEDS: MIDAZOLAM HCL 50 MG in SODIUM CHLORIDE 0.9% 40 ML IV SCH ×3 (01:56→19:58)
[2020-02-10] MEDS: ALBUTEROL/IPRATROPIUM 2.5MG/0.5MG, 3 ML INLINE SCH ×6 (02:36→22:30)
[2020-02-10 04:18] VITALS: BP 109/42
[2020-02-10] MEDS: LEVOTHYROXINE 150 MCG TABLET NG SCH (05:10)
[2020-02-10 07:08] LABS: ANION GAP 4 mmol/L (5-15); CALCIUM 8.7 mg/dL (8.5-10.1); CHLORIDE 97 mmol/L (98-107)
[2020-02-10 07:13] LABS: CREATININE 2.32 mg/dL (0.7-1.3); TROPONIN I 0.201 ng/mL (0.000-0.045)
[2020-02-10 07:26] LABS: HEMOGRAM NOTE RECHECKED; MEAN CORPUSCULAR HGB CONC 32.5 g/dL (33.2-36.2); MEAN CORPUSCULAR VOLUME 83.1 fL (81-97); MEAN PLATELET VOLUME 7.8 fL (7.4-10.4); PLATELET COUNT 232 x10^3/uL (130-400); RED BLOOD COUNT 4.09 x10^6/uL (4.38-5.82); RED CELL DISTRIBUTION WIDTH 15.5 % (9.4-14.8)
[2020-02-10 08:19] LABS: MD YES
[2020-02-10 08:21] LABS: BANDS%(MANUAL) 13 % (0-7); BASOS#(MANUAL) 0.12 x10^3/uL (0-0.1); BASOS% (MANUAL) 1 % (0-1); LYMPH#(MANUAL) 1.04 x10^3/uL (1-3.4); LYMPHS% (MANUAL) 9 % (22-44); MONOS#(MANUAL) 0.58 x10^3/uL (0.3-2.7); MONOS% (MANUAL) 5 % (2-9); NRBC % (MANUAL) 1 % (0-1); SEG#(MANUAL) 8.28 x10^3/uL (1.8-6.8); SEGS% (MANUAL) 72 % (42-75)
[2020-02-10 08:22] LABS: ANISOCYTOSIS 1+
[2020-02-10 08:23] LABS: <PLATELET ESTIMATE> ADEQUATE; <PLT MORPHOLOGY> NORMAL PLT MORPH; OVALOCYTES 1+; POLYCHROMASIA 1+; STOMATOCYTES 1+
[2020-02-10] MEDS: CARVEDILOL 6.25 MG TABLET PO/NG SCH ×2 (09:00→21:17)
[2020-02-10] MEDS: SPIRONOLACTONE 25 MG TABLET PO/NG SCH (09:00)
[2020-02-10] MEDS ORDERED: VANCOMYCIN PER PHARMACY MC PRN (09:00)
[2020-02-10] MEDS ORDERED: CHOLECALCIFEROL 5,000u TAB ONE (09:34)
[2020-02-10] MEDS ORDERED: ASCORBIC ACID 500 MG TABLET ONE (09:34)
[2020-02-10] MEDS ORDERED: ZINC SULFATE 220 MG CAPSULE ONE (09:34)
[2020-02-10] MEDS: METOLAZONE 5 MG TABLET PO/NG SCH (09:59)
[2020-02-10] MEDS: ZINC SULFATE 220 MG CAPSULE PO SCH (09:59)
[2020-02-10] MEDS: ASCORBIC ACID 500 MG TABLET PO SCH (10:00)
[2020-02-10] MEDS: CHOLECALCIFEROL 5,000u TAB PO SCH (10:00)
[2020-02-10] MEDS: INSULIN LISPRO 100 UNITS/ML, PEN SQ-INSULIN SCH ×3 (10:06→21:36)
[2020-02-10] MEDS ORDERED: PHARMACOKINETIC MONITORING MC PRN (10:30)
[2020-02-10] MEDS: AZITHROMYCIN 500 MG TABLET PO SCH (10:54)
[2020-02-10] MEDS: MEROPENEM 1 GM in SODIUM CHLORIDE 0.9% 100 ML IV SCH ×2 (10:56→21:17)
[2020-02-10] MEDS: SODIUM CHLORIDE FLUSH 10ML SYR IVF SCH ×2 (10:57→21:16)
[2020-02-10] MEDS: PLAQUENIL 200MG/8ML ORAL SUSP PO SCH ×2 (11:00→21:16)
[2020-02-10] MEDS ORDERED: VANCOMYCIN 1,800 MG in SODIUM CHLORIDE 0.9% 250 ML IV ONE (11:00)
[2020-02-10 11:42] LABS: TROPONIN I 0.184 ng/mL (0.000-0.045)
[2020-02-10] MEDS ORDERED: SODIUM CHLORIDE 0.9%, 500ML IVBOLUS ONE (13:30)
[2020-02-10] MEDS: FENTANYL PF 100 MCG/2ML IVPush PRN (21:18)
[2020-02-10] MEDS: PROPOFOL 100 ML IV PRN (21:24)
[2020-02-11] MEDS: HEPARIN 5,000 UNITS/ML, 1ML SQ SCH ×3 (01:16→16:09)
[2020-02-11] MEDS: ALBUTEROL/IPRATROPIUM 2.5MG/0.5MG, 3 ML INLINE SCH ×6 (02:00→21:50)
[2020-02-11] MEDS: INSULIN LISPRO 100 UNITS/ML, PEN SQ-INSULIN SCH ×4 (03:00→21:41)
[2020-02-11] MEDS: PROPOFOL 100 ML IV PRN ×4 (03:11→17:52)
[2020-02-11 05:07] VITALS: BP 90/40
[2020-02-11] MEDS ORDERED: LEVOTHYROXINE 75 MCG TABLET ONE (05:11)
[2020-02-11 05:13] LABS: VANCOMYCIN,RANDOM 32.4 mcg/mL
[2020-02-11 05:25] LABS: BASOPHILS # (AUTO) 0.02 x10^3/uL (0-0.1); BASOPHILS % (AUTO) 0 % (0-1); EOSINOPHILS # (AUTO) 0.11 x10^3/uL (0-0.4); EOSINOPHILS % (AUTO) 1 % (1-7); LYMPHOCYTES # (AUTO) 1.05 x10^3/uL (1-3.4); LYMPHOCYTES % (AUTO) 12 % (22-44); MD NO; MEAN CORPUSCULAR VOLUME 84.3 fL (81-97); MEAN PLATELET VOLUME 7.5 fL (7.4-10.4); MONOCYTES # (AUTO) 0.48 x10^3/uL (0.2-0.8); MONOCYTES % (AUTO) 5 % (2-9); NEUTROPHILS % (AUTO) 82 % (42-75); PLATELET COUNT 226 x10^3/uL (130-400); RED BLOOD COUNT 4.19 x10^6/uL (4.38-5.82); RED CELL DISTRIBUTION WIDTH 15.6 % (9.4-14.8)
[2020-02-11] MEDS: LEVOTHYROXINE 150 MCG TABLET NG SCH (06:00)
[2020-02-11 06:44] LABS: ALBUMIN 2.7 g/dL (3.4-5.0); ANION GAP 7 mmol/L (5-15); CALCIUM 8.8 mg/dL (8.5-10.1); CHLORIDE 99 mmol/L (98-107)
[2020-02-11 06:47] LABS: ALANINE AMINOTRANSFERASE 10 U/L (12-78); ALKALINE PHOSPHATASE 78 U/L (45-117); BILIRUBIN,TOTAL 1.1 mg/dL (0.2-1.0); CREATININE 2.08 mg/dL (0.7-1.3); TOTAL PROTEIN 6.2 g/dL (6.4-8.2)
[2020-02-11] MEDS: METOLAZONE 5 MG TABLET PO/NG SCH (08:01)
[2020-02-11] MEDS: CARVEDILOL 6.25 MG TABLET PO/NG SCH ×2 (08:01→21:33)
[2020-02-11] MEDS: ASCORBIC ACID 500 MG TABLET PO SCH (08:01)
[2020-02-11] MEDS: CHOLECALCIFEROL 5,000u TAB PO SCH (08:01)
[2020-02-11] MEDS: AZITHROMYCIN 500 MG TABLET PO SCH (08:01)
[2020-02-11] MEDS: SPIRONOLACTONE 25 MG TABLET PO/NG SCH (08:02)
[2020-02-11] MEDS: ZINC SULFATE 220 MG CAPSULE PO SCH (08:02)
[2020-02-11] MEDS: FAMOTIDINE 20 MG/2 ML IVPush SCH (08:03)
[2020-02-11] MEDS: SODIUM CHLORIDE FLUSH 10ML SYR IVF SCH ×2 (08:07→21:32)
[2020-02-11] MEDS ORDERED: FAMOTIDINE 20 MG/2 ML IVPush SCH (09:00)
[2020-02-11] MEDS: PLAQUENIL 200MG/8ML ORAL SUSP PO SCH ×2 (09:00→21:33)
[2020-02-11] MEDS: MEROPENEM 1 GM in SODIUM CHLORIDE 0.9% 100 ML IV SCH ×2 (10:20→21:43)
[2020-02-11] MEDS ORDERED: FUROSEMIDE 40 MG/4 ML IV SCH (11:00)
[2020-02-11] MEDS ORDERED: POTASSIUM CHLORIDE 10% 40 MEQ/30 ML UDC PO ONE (11:15)
[2020-02-12] MEDS: HEPARIN 5,000 UNITS/ML, 1ML SQ SCH ×3 (01:00→16:40)
[2020-02-12] MEDS: PROPOFOL 100 ML IV PRN ×5 (01:00→20:49)
[2020-02-12] MEDS: ALBUTEROL/IPRATROPIUM 2.5MG/0.5MG, 3 ML INLINE SCH ×6 (02:00→23:02)
[2020-02-12 05:29] LABS: ANION GAP 6 mmol/L (5-15); CALCIUM 9.3 mg/dL (8.5-10.1); CHLORIDE 96 mmol/L (98-107)
[2020-02-12 05:35] LABS: CREATININE 1.86 mg/dL (0.7-1.3); VANCOMYCIN,TROUGH 16.8 mcg/mL (5.0-10.0)
[2020-02-12 05:38] LABS: BASOPHILS # (AUTO) 0.01 x10^3/uL (0-0.1); BASOPHILS % (AUTO) 0 % (0-1); EOSINOPHILS # (AUTO) 0.12 x10^3/uL (0-0.4); EOSINOPHILS % (AUTO) 2 % (1-7); LYMPHOCYTES # (AUTO) 0.81 x10^3/uL (1-3.4); LYMPHOCYTES % (AUTO) 12 % (22-44); MD NO; MEAN CORPUSCULAR HEMOGLOBIN 27.2 pg (27.5-34.5); MEAN CORPUSCULAR HGB CONC 32.8 g/dL (33.2-36.2); MEAN PLATELET VOLUME 7.7 fL (7.4-10.4); MONOCYTES # (AUTO) 0.47 x10^3/uL (0.2-0.8); MONOCYTES % (AUTO) 7 % (2-9); NEUTROPHILS # (AUTO) 5.51 x10^3/uL (1.8-6.8); NEUTROPHILS % (AUTO) 80 % (42-75); PLATELET COUNT 225 x10^3/uL (130-400); RED BLOOD COUNT 4.09 x10^6/uL (4.38-5.82); RED CELL DISTRIBUTION WIDTH 15.8 % (9.4-14.8)
[2020-02-12] MEDS: INSULIN LISPRO 100 UNITS/ML, PEN SQ-INSULIN SCH ×4 (06:16→22:44)
[2020-02-12] MEDS: LEVOTHYROXINE 150 MCG TABLET NG SCH (06:19)
[2020-02-12 07:27] LABS: ALBUMIN 2.9 g/dL (3.4-5.0); BILIRUBIN, DIRECT 0.2 mg/dL (0.1-0.2)
[2020-02-12 07:29] LABS: BILIRUBIN,INDIRECT 0.6 mg/dL (0.0-2.0); BILIRUBIN,TOTAL 0.8 mg/dL (0.2-1.0); TOTAL PROTEIN 6.7 g/dL (6.4-8.2)
[2020-02-12] MEDS ORDERED: POTASSIUM CHLORIDE 10% 40 MEQ/30 ML UDC PO SCH (09:00)
[2020-02-12] MEDS: POTASSIUM CHLORIDE 10% 40 MEQ/30 ML UDC PO SCH ×2 (09:23→20:50)
[2020-02-12] MEDS: FAMOTIDINE 20 MG/2 ML IVPush SCH (09:24)
[2020-02-12] MEDS: SODIUM CHLORIDE FLUSH 10ML SYR IVF SCH ×2 (09:24→20:50)
[2020-02-12] MEDS: AcetaZOLAMIDE INJ 500 MG IVPush SCH ×2 (09:31→20:50)
[2020-02-12] MEDS: CHOLECALCIFEROL 5,000u TAB PO SCH (09:33)
[2020-02-12] MEDS: ASCORBIC ACID 500 MG TABLET PO SCH (09:36)
[2020-02-12] MEDS: ZINC SULFATE 220 MG CAPSULE PO SCH (09:36)
[2020-02-12] MEDS: CARVEDILOL 6.25 MG TABLET PO/NG SCH ×2 (09:37→20:50)
[2020-02-12] MEDS: MEROPENEM 1 GM in SODIUM CHLORIDE 0.9% 100 ML IV SCH ×2 (11:20→22:39)
[2020-02-12] MEDS: INSULIN GLARGINE 100 UNITS/ML, PEN SQ-INSULIN SCH ×2 (11:20→22:43)
[2020-02-12] MEDS: PLAQUENIL 200MG/8ML ORAL SUSP PO SCH ×2 (11:20→20:51)
[2020-02-12 16:10] LABS: ALBUMIN 2.8 g/dL (3.4-5.0)
[2020-02-12 16:14] LABS: ALANINE AMINOTRANSFERASE 10 U/L (12-78)
[2020-02-12 16:16] LABS: ALKALINE PHOSPHATASE 78 U/L (45-117); BILIRUBIN,TOTAL 0.7 mg/dL (0.2-1.0); TOTAL PROTEIN 6.8 g/dL (6.4-8.2)
[2020-02-13] MEDS: HEPARIN 5,000 UNITS/ML, 1ML SQ SCH ×3 (01:44→16:41)
[2020-02-13] MEDS: PROPOFOL 100 ML IV PRN ×5 (01:47→22:38)
[2020-02-13] MEDS: INSULIN LISPRO 100 UNITS/ML, PEN SQ-INSULIN SCH ×4 (04:43→21:39)
[2020-02-13 04:49] LABS: BASOPHILS # (AUTO) 0.03 x10^3/uL (0-0.1); BASOPHILS % (AUTO) 1 % (0-1); EOSINOPHILS # (AUTO) 0.23 x10^3/uL (0-0.4); EOSINOPHILS % (AUTO) 4 % (1-7); LYMPHOCYTES # (AUTO) 0.92 x10^3/uL (1-3.4); LYMPHOCYTES % (AUTO) 15 % (22-44); MD NO; MEAN CORPUSCULAR HEMOGLOBIN 26.8 pg (27.5-34.5); MEAN CORPUSCULAR HGB CONC 32.5 g/dL (33.2-36.2); MEAN CORPUSCULAR VOLUME 82.5 fL (81-97); MEAN PLATELET VOLUME 7.4 fL (7.4-10.4); MONOCYTES % (AUTO) 8 % (2-9); NEUTROPHILS # (AUTO) 4.28 x10^3/uL (1.8-6.8); NEUTROPHILS % (AUTO) 72 % (42-75); PLATELET COUNT 258 x10^3/uL (130-400); RED BLOOD COUNT 4.33 x10^6/uL (4.38-5.82); RED CELL DISTRIBUTION WIDTH 15.8 % (9.4-14.8)
[2020-02-13 04:58] LABS: ANION GAP 7 mmol/L (5-15); CALCIUM 9.4 mg/dL (8.5-10.1); CHLORIDE 102 mmol/L (98-107); CREATININE 1.74 mg/dL (0.7-1.3); TRIGLYCERIDES 226 mg/dL (50-200)
[2020-02-13] MEDS ORDERED: LEVOTHYROXINE 50 MCG TABLET ONE (05:43)
[2020-02-13] MEDS ORDERED: LEVOTHYROXINE 100 MCG TABLET ONE (05:43)
[2020-02-13] MEDS: LEVOTHYROXINE 150 MCG TABLET NG SCH (05:48)
[2020-02-13] MEDS: ALBUTEROL/IPRATROPIUM 2.5MG/0.5MG, 3 ML INLINE SCH ×6 (07:20→23:20)
[2020-02-13] MEDS: ZINC SULFATE 220 MG CAPSULE PO SCH (09:00)
[2020-02-13] MEDS: FAMOTIDINE 20 MG/2 ML IVPush SCH (09:56)
[2020-02-13] MEDS: CARVEDILOL 6.25 MG TABLET PO/NG SCH ×2 (09:57→21:24)
[2020-02-13] MEDS: AZITHROMYCIN 250 MG TABLET PO SCH (09:57)
[2020-02-13] MEDS: CHOLECALCIFEROL 5,000u TAB PO SCH (09:57)
[2020-02-13] MEDS: SODIUM CHLORIDE FLUSH 10ML SYR IVF SCH ×2 (09:57→21:23)
[2020-02-13] MEDS: PLAQUENIL 200MG/8ML ORAL SUSP PO SCH ×2 (09:58→21:24)
[2020-02-13] MEDS: MEROPENEM 1 GM in SODIUM CHLORIDE 0.9% 100 ML IV SCH ×2 (10:00→21:52)
[2020-02-13] MEDS: ASCORBIC ACID 500 MG TABLET PO SCH (11:03)
[2020-02-13] MEDS: INSULIN GLARGINE 100 UNITS/ML, PEN SQ-INSULIN SCH ×2 (11:12→21:40)
[2020-02-13 11:46] LABS: ALANINE AMINOTRANSFERASE 10 U/L (12-78); ALBUMIN 2.8 g/dL (3.4-5.0); ANION GAP 9 mmol/L (5-15); CALCIUM 8.9 mg/dL (8.5-10.1); CHLORIDE 102 mmol/L (98-107); CREATININE 1.67 mg/dL (0.7-1.3)
[2020-02-13 11:48] LABS: ALKALINE PHOSPHATASE 74 U/L (45-117); BILIRUBIN,TOTAL 0.4 mg/dL (0.2-1.0); TOTAL PROTEIN 6.9 g/dL (6.4-8.2)
[2020-02-14] MEDS: HEPARIN 5,000 UNITS/ML, 1ML SQ SCH ×3 (01:33→17:23)
[2020-02-14] MEDS: ALBUTEROL/IPRATROPIUM 2.5MG/0.5MG, 3 ML INLINE SCH ×6 (02:15→22:12)
[2020-02-14] MEDS: PROPOFOL 100 ML IV PRN ×3 (03:39→20:33)
[2020-02-14 04:15] LABS: BASOPHILS # (AUTO) 0.02 x10^3/uL (0-0.1); BASOPHILS % (AUTO) 0 % (0-1); EOSINOPHILS # (AUTO) 0.26 x10^3/uL (0-0.4); EOSINOPHILS % (AUTO) 4 % (1-7); LYMPHOCYTES # (AUTO) 0.92 x10^3/uL (1-3.4); LYMPHOCYTES % (AUTO) 14 % (22-44); MD NO; MEAN CORPUSCULAR HEMOGLOBIN 26.9 pg (27.5-34.5); MEAN CORPUSCULAR HGB CONC 32.8 g/dL (33.2-36.2); MEAN CORPUSCULAR VOLUME 81.8 fL (81-97); MEAN PLATELET VOLUME 7.7 fL (7.4-10.4); MONOCYTES # (AUTO) 0.57 x10^3/uL (0.2-0.8); MONOCYTES % (AUTO) 9 % (2-9); NEUTROPHILS % (AUTO) 73 % (42-75); PLATELET COUNT 285 x10^3/uL (130-400); RED BLOOD COUNT 4.31 x10^6/uL (4.38-5.82); RED CELL DISTRIBUTION WIDTH 15.7 % (9.4-14.8)
[2020-02-14 04:26] LABS: ANION GAP 7 mmol/L (5-15); CALCIUM 8.9 mg/dL (8.5-10.1); CHLORIDE 102 mmol/L (98-107)
[2020-02-14 04:27] LABS: CREATININE 1.65 mg/dL (0.7-1.3)
[2020-02-14] MEDS: LEVOTHYROXINE 150 MCG TABLET NG SCH (05:59)
[2020-02-14] MEDS: ASCORBIC ACID 500 MG TABLET PO SCH (07:45)
[2020-02-14] MEDS: AZITHROMYCIN 250 MG TABLET PO SCH (07:45)
[2020-02-14] MEDS: CARVEDILOL 6.25 MG TABLET PO/NG SCH ×2 (07:46→20:32)
[2020-02-14] MEDS: CHOLECALCIFEROL 5,000u TAB PO SCH (07:46)
[2020-02-14] MEDS: ZINC SULFATE 220 MG CAPSULE PO SCH (07:47)
[2020-02-14] MEDS: FAMOTIDINE 20 MG/2 ML IVPush SCH (07:47)
[2020-02-14] MEDS: SODIUM CHLORIDE FLUSH 10ML SYR IVF SCH ×2 (07:48→20:32)
[2020-02-14] MEDS: PLAQUENIL 200MG/8ML ORAL SUSP PO SCH (08:00)
[2020-02-14] MEDS: INSULIN LISPRO 100 UNITS/ML, PEN SQ-INSULIN SCH ×4 (08:02→20:38)
[2020-02-14] MEDS: INSULIN GLARGINE 100 UNITS/ML, PEN SQ-INSULIN SCH ×2 (08:03→20:39)
[2020-02-14] MEDS ORDERED: SCOPOLAMINE 1MG PATCH TD SCH (09:00)
[2020-02-14] MEDS: MEROPENEM 1 GM in SODIUM CHLORIDE 0.9% 100 ML IV SCH ×2 (11:02→21:24)
[2020-02-14 11:59] LABS: ALANINE AMINOTRANSFERASE 11 U/L (12-78); ANION GAP 6 mmol/L (5-15); CALCIUM 9.2 mg/dL (8.5-10.1); CHLORIDE 103 mmol/L (98-107)
[2020-02-14 12:00] LABS: ALKALINE PHOSPHATASE 77 U/L (45-117); BILIRUBIN,TOTAL 0.2 mg/dL (0.2-1.0); CREATININE 1.56 mg/dL (0.7-1.3); TOTAL PROTEIN 7.3 g/dL (6.4-8.2)
[2020-02-15] MEDS: HEPARIN 5,000 UNITS/ML, 1ML SQ SCH ×3 (01:05→17:31)
[2020-02-15] MEDS: PROPOFOL 100 ML IV PRN (01:07)
[2020-02-15] MEDS: ALBUTEROL/IPRATROPIUM 2.5MG/0.5MG, 3 ML INLINE SCH ×3 (03:21→10:25)
[2020-02-15] MEDS: INSULIN LISPRO 100 UNITS/ML, PEN SQ-INSULIN SCH ×4 (04:24→20:58)
[2020-02-15 04:39] LABS: BASOPHILS # (AUTO) 0.05 x10^3/uL (0-0.1); BASOPHILS % (AUTO) 1 % (0-1); EOSINOPHILS # (AUTO) 0.32 x10^3/uL (0-0.4); EOSINOPHILS % (AUTO) 4 % (1-7); LYMPHOCYTES # (AUTO) 1.25 x10^3/uL (1-3.4); LYMPHOCYTES % (AUTO) 16 % (22-44); MD NO; MEAN CORPUSCULAR HEMOGLOBIN 26.9 pg (27.5-34.5); MEAN CORPUSCULAR HGB CONC 32.8 g/dL (33.2-36.2); MEAN PLATELET VOLUME 8.1 fL (7.4-10.4); MONOCYTES # (AUTO) 0.79 x10^3/uL (0.2-0.8); MONOCYTES % (AUTO) 10 % (2-9); NEUTROPHILS # (AUTO) 5.31 x10^3/uL (1.8-6.8); NEUTROPHILS % (AUTO) 69 % (42-75); PLATELET COUNT 327 x10^3/uL (130-400); RED BLOOD COUNT 4.53 x10^6/uL (4.38-5.82); RED CELL DISTRIBUTION WIDTH 15.8 % (9.4-14.8)
[2020-02-15 04:42] LABS: ANION GAP 7 mmol/L (5-15); CALCIUM 9.2 mg/dL (8.5-10.1); CHLORIDE 104 mmol/L (98-107); CREATININE 1.41 mg/dL (0.7-1.3)
[2020-02-15] MEDS: LEVOTHYROXINE 150 MCG TABLET NG SCH (06:11)
[2020-02-15] MEDS: CARVEDILOL 6.25 MG TABLET PO/NG SCH ×2 (08:37→20:41)
[2020-02-15] MEDS: FAMOTIDINE 20 MG/2 ML IVPush SCH (08:37)
[2020-02-15] MEDS: MEROPENEM 1 GM in SODIUM CHLORIDE 0.9% 100 ML IV SCH ×2 (08:38→21:37)
[2020-02-15] MEDS: SODIUM CHLORIDE FLUSH 10ML SYR IVF SCH ×2 (08:42→20:40)
[2020-02-15] MEDS: INSULIN GLARGINE 100 UNITS/ML, PEN SQ-INSULIN SCH ×2 (08:42→15:46)
[2020-02-15 09:13] LABS: ALANINE AMINOTRANSFERASE 17 U/L (12-78); ALBUMIN 3.3 g/dL (3.4-5.0)
[2020-02-15 09:15] LABS: ALKALINE PHOSPHATASE 77 U/L (45-117); BILIRUBIN,TOTAL 0.3 mg/dL (0.2-1.0); TOTAL PROTEIN 7.5 g/dL (6.4-8.2)
[2020-02-15] MEDS: ALBUTEROL/IPRATROPIUM 2.5MG/0.5MG, 3 ML NPPB SCH ×2 (16:20→20:27)
[2020-02-15] MEDS ORDERED: ALBUTEROL/IPRATROPIUM 2.5MG/0.5MG, 3 ML NEB SCH (17:00)
[2020-02-15] MEDS: FAMOTIDINE 20 MG TABLET PO SCH (20:41)
[2020-02-16] MEDS: ALBUTEROL/IPRATROPIUM 2.5MG/0.5MG, 3 ML NPPB SCH ×5 (01:08→19:21)
[2020-02-16] MEDS: HEPARIN 5,000 UNITS/ML, 1ML SQ SCH ×3 (02:15→17:25)
[2020-02-16] MEDS: INSULIN LISPRO 100 UNITS/ML, PEN SQ-INSULIN SCH ×4 (02:16→21:33)
[2020-02-16 04:09] VITALS: BP 124/65
[2020-02-16 04:53] LABS: BASOPHILS # (AUTO) 0.03 x10^3/uL (0-0.1); BASOPHILS % (AUTO) 0 % (0-1); EOSINOPHILS # (AUTO) 0.38 x10^3/uL (0-0.4); EOSINOPHILS % (AUTO) 4 % (1-7); LYMPHOCYTES # (AUTO) 1.29 x10^3/uL (1-3.4); LYMPHOCYTES % (AUTO) 14 % (22-44); MD NO; MEAN CORPUSCULAR HEMOGLOBIN 27.1 pg (27.5-34.5); MEAN PLATELET VOLUME 8.2 fL (7.4-10.4); MONOCYTES # (AUTO) 0.81 x10^3/uL (0.2-0.8); MONOCYTES % (AUTO) 9 % (2-9); NEUTROPHILS # (AUTO) 6.67 x10^3/uL (1.8-6.8); NEUTROPHILS % (AUTO) 73 % (42-75); PLATELET COUNT 369 x10^3/uL (130-400); RED BLOOD COUNT 4.67 x10^6/uL (4.38-5.82); RED CELL DISTRIBUTION WIDTH 15.9 % (9.4-14.8)
[2020-02-16 05:07] LABS: CHLORIDE 106 mmol/L (98-107)
[2020-02-16 05:15] LABS: ALANINE AMINOTRANSFERASE 24 U/L (12-78); ALBUMIN 3.3 g/dL (3.4-5.0); ALKALINE PHOSPHATASE 79 U/L (45-117); ANION GAP 7 mmol/L (5-15); BILIRUBIN,TOTAL 0.6 mg/dL (0.2-1.0); CALCIUM 9.5 mg/dL (8.5-10.1); TOTAL PROTEIN 7.7 g/dL (6.4-8.2)
[2020-02-16] MEDS: LEVOTHYROXINE 150 MCG TABLET NG SCH (05:34)
[2020-02-16] MEDS: FAMOTIDINE 20 MG TABLET PO SCH (08:13)
[2020-02-16] MEDS: CARVEDILOL 6.25 MG TABLET PO/NG SCH ×2 (08:13→21:30)
[2020-02-16] MEDS: INSULIN GLARGINE 100 UNITS/ML, PEN SQ-INSULIN SCH ×2 (08:14→21:36)
[2020-02-16] MEDS: SODIUM CHLORIDE FLUSH 10ML SYR IVF SCH ×2 (08:14→21:29)
[2020-02-16] MEDS: MEROPENEM 1 GM in SODIUM CHLORIDE 0.9% 100 ML IV SCH ×2 (10:04→18:04)
[2020-02-16 15:00] VITALS: BP 134/59
[2020-02-16] MEDS ORDERED: ALBUTEROL/IPRATROPIUM 2.5MG/0.5MG, 3 ML NPPB PRN (15:00)
[2020-02-16 18:42] VITALS: BP 120/78
[2020-02-17 00:51] VITALS: BP 129/81
[2020-02-17] MEDS: MEROPENEM 1 GM in SODIUM CHLORIDE 0.9% 100 ML IV SCH ×3 (01:38→17:34)
[2020-02-17] MEDS: HEPARIN 5,000 UNITS/ML, 1ML SQ SCH ×3 (01:38→17:34)
[2020-02-17] MEDS: LEVOTHYROXINE 150 MCG TABLET NG SCH (06:06)
[2020-02-17 06:52] VITALS: BP 100/61
[2020-02-17] MEDS: INSULIN LISPRO 100 UNITS/ML, PEN SQ-INSULIN SCH ×4 (07:00→20:34)
[2020-02-17] MEDS: ALBUTEROL/IPRATROPIUM 2.5MG/0.5MG, 3 ML NPPB SCH ×2 (09:15→18:30)
[2020-02-17] MEDS: SODIUM CHLORIDE FLUSH 10ML SYR IVF SCH ×2 (09:44→20:35)
[2020-02-17] MEDS: CARVEDILOL 6.25 MG TABLET PO/NG SCH ×2 (09:44→20:34)
[2020-02-17] MEDS: INSULIN GLARGINE 100 UNITS/ML, PEN SQ-INSULIN SCH ×2 (09:45→20:34)
[2020-02-17 14:00] VITALS: BP 128/72
[2020-02-17 18:21] VITALS: BP 131/79
[2020-02-18 00:27] VITALS: BP 115/75
[2020-02-18] MEDS: MEROPENEM 1 GM in SODIUM CHLORIDE 0.9% 100 ML IV SCH ×3 (02:44→20:29)
[2020-02-18] MEDS: HEPARIN 5,000 UNITS/ML, 1ML SQ SCH ×3 (02:44→16:04)
[2020-02-18] MEDS: LEVOTHYROXINE 150 MCG TABLET NG SCH (05:14)
[2020-02-18 06:24] LABS: BASOPHILS # (AUTO) 0.03 x10^3/uL (0-0.1); BASOPHILS % (AUTO) 0 % (0-1); EOSINOPHILS # (AUTO) 0.24 x10^3/uL (0-0.4); EOSINOPHILS % (AUTO) 4 % (1-7); LYMPHOCYTES # (AUTO) 1.23 x10^3/uL (1-3.4); LYMPHOCYTES % (AUTO) 20 % (22-44); MD NO; MEAN CORPUSCULAR HGB CONC 32.9 g/dL (33.2-36.2); MEAN CORPUSCULAR VOLUME 82.1 fL (81-97); MEAN PLATELET VOLUME 7.6 fL (7.4-10.4); MONOCYTES # (AUTO) 0.69 x10^3/uL (0.2-0.8); MONOCYTES % (AUTO) 11 % (2-9); NEUTROPHILS % (AUTO) 64 % (42-75); PLATELET COUNT 420 x10^3/uL (130-400); RED BLOOD COUNT 4.53 x10^6/uL (4.38-5.82); RED CELL DISTRIBUTION WIDTH 14.9 % (9.4-14.8)
[2020-02-18 06:35] LABS: ANION GAP 3 mmol/L (5-15); CALCIUM 8.9 mg/dL (8.5-10.1); CHLORIDE 108 mmol/L (98-107); CREATININE 1.08 mg/dL (0.7-1.3)
[2020-02-18] MEDS: INSULIN LISPRO 100 UNITS/ML, PEN SQ-INSULIN SCH ×4 (07:00→20:28)
[2020-02-18 07:34] VITALS: BP 111/75
[2020-02-18] MEDS: SODIUM CHLORIDE FLUSH 10ML SYR IVF SCH ×2 (09:00→20:30)
[2020-02-18] MEDS: CARVEDILOL 6.25 MG TABLET PO/NG SCH ×2 (09:00→20:29)
[2020-02-18] MEDS: ALBUTEROL/IPRATROPIUM 2.5MG/0.5MG, 3 ML NPPB SCH ×2 (09:10→19:53)
[2020-02-18] MEDS: INSULIN GLARGINE 100 UNITS/ML, PEN SQ-INSULIN SCH ×2 (09:56→20:28)
[2020-02-18 13:52] VITALS: BP 106/69
[2020-02-18 19:47] VITALS: BP 114/68
[2020-02-19 00:56] VITALS: BP 130/73
[2020-02-19] MEDS: HEPARIN 5,000 UNITS/ML, 1ML SQ SCH ×3 (02:23→16:34)
[2020-02-19] MEDS: MEROPENEM 1 GM in SODIUM CHLORIDE 0.9% 100 ML IV SCH ×2 (03:19→11:30)
[2020-02-19] MEDS: LEVOTHYROXINE 150 MCG TABLET NG SCH (06:10)
[2020-02-19] MEDS: INSULIN LISPRO 100 UNITS/ML, PEN SQ-INSULIN SCH ×3 (07:00→16:00)
[2020-02-19 07:03] VITALS: BP 124/77
[2020-02-19] MEDS: CARVEDILOL 6.25 MG TABLET PO/NG SCH (07:48)
[2020-02-19] MEDS: INSULIN GLARGINE 100 UNITS/ML, PEN SQ-INSULIN SCH (07:48)
[2020-02-19] MEDS: SODIUM CHLORIDE FLUSH 10ML SYR IVF SCH (07:55)
[2020-02-19] MEDS: ALBUTEROL/IPRATROPIUM 2.5MG/0.5MG, 3 ML NPPB SCH (09:55)
[2020-02-19 13:28] VITALS: BP 126/78
== END 2020-02-19 17:26 | disposition home or self-care (01) | DRG 870 ==
LOC: ED 21:45 → EDIP 23:42 → ICU 02-10 00:18 → CCU 02-14 19:03 → 3N 02-16 15:38
PROVIDERS: ADMIT Family Medicine; ATTEND Hospitalist
PROC: 5A1955Z Respiratory Ventilation, Greater than 96 Consecutive Hours (ICD-10-PCS; principal; 2020-02-09)
PROC: 0BH17EZ Insertion of Endotracheal Airway into Trachea, Via Natural or Artificial Opening (ICD-10-PCS; 2020-02-09)
DX: A41.9 Sepsis, unspecified organism (principal); J18.9 Pneumonia, unspecified organism; I21.A1 Myocardial infarction type 2; J96.21 Acute and chronic respiratory failure with hypoxia; G93.41 Metabolic encephalopathy; J96.22 Acute and chronic respiratory failure with hypercapnia; I50.33 Acute on chronic diastolic (congestive) heart failure; I13.0 Hypertensive heart and chronic kidney disease with heart failure and stage 1 through stage 4 chronic kidney disease, or unspecified chronic kidney disease; N17.9 Acute kidney failure, unspecified; J44.0 Chronic obstructive pulmonary disease with (acute) lower respiratory infection; Z99.11 Dependence on respirator [ventilator] status; J44.1 Chronic obstructive pulmonary disease with (acute) exacerbation; N18.3 Chronic kidney disease, stage 3 (moderate); F12.90 Cannabis use, unspecified, uncomplicated; E11.22 Type 2 diabetes mellitus with diabetic chronic kidney disease; Z99.81 Dependence on supplemental oxygen; G47.33 Obstructive sleep apnea (adult) (pediatric); I27.21 Secondary pulmonary arterial hypertension; E78.5 Hyperlipidemia, unspecified; E03.9 Hypothyroidism, unspecified; E11.40 Type 2 diabetes mellitus with diabetic neuropathy, unspecified; I25.2 Old myocardial infarction; Z20.828 Contact with and (suspected) exposure to other viral communicable diseases; I08.2 Rheumatic disorders of both aortic and tricuspid valves; M06.9 Rheumatoid arthritis, unspecified; E66.9 Obesity, unspecified; Z82.49 Family history of ischemic heart disease and other diseases of the circulatory system; Z83.3 Family history of diabetes mellitus; Z86.73 Personal history of transient ischemic attack (TIA), and cerebral infarction without residual deficits; Z87.891 Personal history of nicotine dependence; Z79.4 Long term (current) use of insulin; Z91.14 Patient's other noncompliance with medication regimen; Z86.74 Personal history of sudden cardiac arrest; Z79.899 Other long term (current) drug therapy; Z68.36 Body mass index [BMI] 36.0-36.9, adult; Z88.0 Allergy status to penicillin
CPT/HCPCS: 31500; 36415; 36600; 84145; 96365; 96375; 99291; J3490; 71045; 80048; 80053; 80076; 80202; 81001; 82040; 82533; 82803; 82962; 83036; 83605; 83735; 83880; 84100; 84443; 84478; 84484; 85025; 87040; 87070; 87081; 87205; 93005; 93970; 94002; 94003; 94150; 94640; G0378; J1644; J1940; J2185; J2250; J2704; J3010; J3370; J0330; J1120; J1815; J7040; J7050; U0001

== ENCOUNTER 2020-03-16 12:51 | Day surgery (SDC) | payer MEDICAID ==
[~2020-03-16] VITALS: Ht 167.6 cm; Wt 110.0 kg
[~2020-03-16 12:51] MED LIST changes: +CARV6.252 PO; +ERGO500017 PO; -ETOMIDATE 20 MG/10 ML ONE; +MACI10TA PO; +METF500T17 PO; +METO5TAB5 PO; -MIDAZOLAM 1 MG/ML, 5ML ONE; -PROPOFOL 10 MG/ML, 100ML IV ONE; +SILD20TA PO; +SPIR25TA5 PO; -SUCCINYLCHOLINE 20 MG/ML, 10ML ONE
[2020-03-16] MEDS ORDERED: DIPHENHYDRAMINE 50 MG/ML, 1ML IVPush ONE (14:00)
[2020-03-16] MEDS ORDERED: PLEASE ENTER HEIGHT AND WEIGHT MC SCH (14:00)
[2020-03-16] MEDS ORDERED: INSU100I13 SQ (14:04)
[2020-03-16] MEDS ORDERED: INSU100C SQ-INSULIN (14:04)
[2020-03-16 14:18] LABS: BASOPHILS # (AUTO) 0.02 x10^3/uL (0-0.1); BASOPHILS % (AUTO) 0 % (0-1); EOSINOPHILS # (AUTO) 0.15 x10^3/uL (0-0.4); EOSINOPHILS % (AUTO) 2 % (1-7); LYMPHOCYTES # (AUTO) 1.31 x10^3/uL (1-3.4); LYMPHOCYTES % (AUTO) 18 % (22-44); MD NO; MEAN CORPUSCULAR HGB CONC 33.2 g/dL (33.2-36.2); MEAN CORPUSCULAR VOLUME 81.4 fL (81-97); MEAN PLATELET VOLUME 7.8 fL (7.4-10.4); MONOCYTES # (AUTO) 0.62 x10^3/uL (0.2-0.8); MONOCYTES % (AUTO) 9 % (2-9); NEUTROPHILS # (AUTO) 5.02 x10^3/uL (1.8-6.8); NEUTROPHILS % (AUTO) 71 % (42-75); PLATELET COUNT 308 x10^3/uL (130-400); RED BLOOD COUNT 4.56 x10^6/uL (4.38-5.82); RED CELL DISTRIBUTION WIDTH 14.8 % (9.4-14.8)
[2020-03-16 14:19] VITALS: BP 123/75
[2020-03-16 14:28] LABS: CALCIUM 9.3 mg/dL (8.5-10.1); CHLORIDE 94 mmol/L (98-107); CREATININE 1.63 mg/dL (0.7-1.3)
[2020-03-16 14:36] LABS: ANION GAP 4 mmol/L (5-15)
[2020-03-16] MEDS ORDERED: MIDAZOLAM 1 MG/ML, 5ML ONE (14:41)
[2020-03-16] MEDS ORDERED: FENTANYL PF 100 MCG/2ML ONE (14:41)
[2020-03-16] MEDS ORDERED: HEPARIN 1,000 UNITS/ML, 10ML ONE (14:42)
[2020-03-16] MEDS ORDERED: VERAPAMIL 2.5 MG/ML, 2ML ONE (14:42)
[2020-03-16] MEDS ORDERED: LIDOCAINE-MPF 1%, 5ML ONE (14:42)
[2020-03-16] MEDS ORDERED: SODIUM CHLORIDE 0.9% 1,000 ML IV SCH (15:47)
== END 2020-03-16 17:08 | disposition home or self-care (01) ==
LOC: CACL 12:51
PROVIDERS: ATTEND Internal Medicine Cardiovascular Disease
DX: I27.23 Pulmonary hypertension due to lung diseases and hypoxia (principal); I11.0 Hypertensive heart disease with heart failure; I50.32 Chronic diastolic (congestive) heart failure; E11.9 Type 2 diabetes mellitus without complications; E55.9 Vitamin D deficiency, unspecified; Z79.4 Long term (current) use of insulin; Z79.82 Long term (current) use of aspirin; Z79.890 Hormone replacement therapy; Z79.899 Other long term (current) drug therapy; Z88.0 Allergy status to penicillin
CPT/HCPCS: 36415; 80048; 85025; 93460; 99156; 99157; C1769; C1894; J1644; J2250; J3010; Q9967

== ENCOUNTER 2020-07-14 15:44 | Inpatient (IN) | payer MEDICAID ==
[~2020-07-14] VITALS: Ht 170.2 cm; Wt 115.0 kg
[~2020-07-14 15:44] MED LIST changes: +EPINEPHRINE SYRINGE 0.1 MG/ML, 10ML ONE; +INSU100C SQ-INSULIN; +INSU100I13 SQ
--- NOTE | 2020-07-14 15:44 | NUR ---
ARRIVAL AT 1527 VIA [facility]. FD REPORT PATIENT HAD WITNESSED ARREST AT 1515.(RAN OUT OF HOME 02) FD REPORTS PATIENT PULSELESS. THEY PERFORMED 2 ROUNDS OF CPR/PLACED LMA AND PULSES RETURNED. ON ARRIVAL PATIENT BEING BAGGED TO LMA. WITH BOUNDING PULSES, HR 100 NSR, SBP 140. ECG OBTAINED FSBS "HIGH" PROVIDER TO PLACE ETT/INTIATE ACTIVE COOLING
--- NOTE | 2020-07-14 15:44 | NUR ---
With assessment pupils 5mm and non reactive (no sedation given by fd or news writer). Provider decided to attempt to place ETT without sedation at 1540. Provider unable to place tube, bagged for 10 minutes, Provider attempted again at 1545-tubed placed with visual acknowledgement-However patient abdomen inflated massively. At this time gross vomitius noted from mouth/nose around tube. At 1548 pulses lost. Cpr intiated. ETT pulled by RT as concern for gastric placement 1549-Epi /bicarb 1550-pea, no pulses 1552-pea, epi/calcium 1554- SinusTach with st elevation with pulse, cpr held 1557-Intubated with 8.0 ett [id number] pulses lost/pea 1559-epi 1603-epi 1605-ett swapped with bougie (ett cuff blown) 1607-epi-->rhythm changes to SinusTach with ST elevation WITH a pulse 1609-pea/no pulses-cpr 1611-return of pulse SinusTach with a pulse 1615-etomidate/sux-intubated with 8.0, Ng placed 1618-epi gtt started at 0.1 (115kg) 34ml/hr
[2020-07-14] MEDS ORDERED: PROPOFOL 100 ML IV ONE (16:42)
[2020-07-14] MEDS ORDERED: EPINEPHRINE SYRINGE 0.1 MG/ML, 10ML ONE (16:47)
[2020-07-14] MEDS ORDERED: CALCIUM CHLORIDE 10%, 10ML SYR ONE (16:47)
[2020-07-14] MEDS ORDERED: EPINEPHRINE 1 MG/ML, 1ML ONE (16:47)
[2020-07-14] MEDS ORDERED: ETOMIDATE 20 MG/10 ML ONE (16:47)
[2020-07-14] MEDS ORDERED: SODIUM BICARB 8.4%, 50ML SYRINGE ONE (16:47)
[2020-07-14] MEDS ORDERED: SUCCINYLCHOLINE 20 MG/ML, 10ML ONE (16:47)
[2020-07-14 16:49] LABS: BASOPHILS # (AUTO) 0.01 x10^3/uL (0-0.1); BASOPHILS % (AUTO) 0 % (0-1); EOSINOPHILS # (AUTO) 0.05 x10^3/uL (0-0.4); EOSINOPHILS % (AUTO) 1 % (1-7); LYMPHOCYTES # (AUTO) 2.26 x10^3/uL (1-3.4); LYMPHOCYTES % (AUTO) 21 % (22-44); MD NO; MEAN PLATELET VOLUME 9.5 fL (7.4-10.4); MONOCYTES % (AUTO) 2 % (2-9); NEUTROPHILS # (AUTO) 8.07 x10^3/uL (1.8-6.8); NEUTROPHILS % (AUTO) 76 % (42-75); PLATELET COUNT 198 x10^3/uL (130-400); RED BLOOD COUNT 4.84 x10^6/uL (4.38-5.82); RED CELL DISTRIBUTION WIDTH 15.8 % (9.4-14.8)
[2020-07-14 16:54] LABS: INTERNATIONAL NORMALIZED RATIO 0.93 (0.93-1.1); PROTHROMBIN TIME 9.6 Seconds (9.6-11.5)
[2020-07-14] MEDS ORDERED: PLEASE ENTER HEIGHT AND WEIGHT MC SCH (17:00)
[2020-07-14] MEDS ORDERED: SUCCINYLCHOLINE 20 MG/ML, 10ML IVPush ONE (17:00)
[2020-07-14] MEDS ORDERED: ETOMIDATE 20 MG/10 ML IVPush ONE (17:00)
[2020-07-14] MEDS ORDERED: PROPOFOL 100 ML IV PRN (17:06)
[2020-07-14] MEDS ORDERED: NOREPINEPHRINE 8 MG in SODIUM CHLORIDE 0.9% 242 ML IV PRN (17:06)
--- NOTE | 2020-07-14 17:20 | NUR ---
Report from Dk REECE. Care assumed. Dr. Osullivan and Dr. Patel at bedside to evaluate pt for admission. R nare NGT removed due to OG in place with output 300mL thick brown drainage. Epistaxis to R nare, clamp applied. Pt's skin cleaned, linens changed. Pt belongings: one t-shirt, phone, glasses, shoes, wallet, hat placed in bags and given to pt's son Carlos. Pt appears well sedated on 10 mcg/kg/min Propofol. Epi gtt restarted due to hypotension.
[2020-07-14] MEDS ORDERED: PHARMACY MAY ADJ FOR RENAL FX MC SCH (17:30)
[2020-07-14] MEDS ORDERED: DEXTROSE 50%, 50ML SYRINGE IVPush PRN (17:30)
[2020-07-14] MEDS ORDERED: LACTULOSE 20 GM/30 ML UDC NG PRN (17:30)
[2020-07-14] MEDS ORDERED: ALBUTEROL/IPRATROPIUM 2.5MG/0.5MG, 3 ML INLINE SCH (17:30)
[2020-07-14] MEDS ORDERED: BISACODYL 10 MG SUPP PR PRN (17:30)
[2020-07-14] MEDS ORDERED: SENNA 176 MG/5 ML ORAL SOL NG PRN (17:30)
[2020-07-14] MEDS ORDERED: LIDOCAINE-MPF 1%, 2ML ENDO PRN (17:30)
[2020-07-14] MEDS ORDERED: FENTANYL PF 100 MCG/2ML IVPush PRN (17:30)
[2020-07-14] MEDS ORDERED: GLUCAGON 1 MG IM PRN (17:30)
[2020-07-14] MEDS ORDERED: SENNA/DOCUSATE TABLET NG PRN (17:30)
[2020-07-14] MEDS ORDERED: DEXTROSE 4 GM TAB.CHEW PO PRN (17:30)
--- NOTE | 2020-07-14 17:39 | NUR ---
Dr. Burch at bedside to insert central line
--- NOTE | 2020-07-14 17:54 | NUR ---
Dr. Burch still at bedside attempting to insert central line.
[2020-07-14] MEDS ORDERED: ONDANSETRON 2MG/ML, 2ML IVPush PRN (18:00)
[2020-07-14] MEDS ORDERED: ACETAMINOPHEN 325 MG TABLET PO PRN (18:00)
--- NOTE | 2020-07-14 18:09 | NUR ---
Report called to Rafa REECE in CCU. Floor ready for pt transport. Plan to take pt to CT before taking him up to CCU.
[2020-07-14] MEDS ORDERED: EPINEPHRINE 5 MG in SODIUM CHLORIDE 0.9% 245 ML IV PRN ×2 (18:12→18:30)
--- NOTE | 2020-07-14 18:20 | NUR ---
Propofol gtt held to assess pt responsiveness.
[2020-07-14 18:30] VITALS: BP 121/58
[2020-07-14] MEDS ORDERED: INSULIN INFUSION FOR ICU PROTOCOL XX PRN (18:30)
[2020-07-14] MEDS ORDERED: SODIUM CHLORIDE 0.9% 1,000ML IVBOLUS ONE (18:30)
--- NOTE | 2020-07-14 19:17 | NUR ---
Late entry due to pt care: Pt transported to CT by this RN, EMT, RT. Pt transfered to CT table by multiple staff members. Before CT was able to be completed Pt lost pulses. Code blue called and CPR initiated. Please refer to code sheet for meds and timing. Dr. Osullivan and Dr. Burch at bedside during code. ROSC achieved. Pt's son brought over to CT. Pt's son reports that pt's wishes pt to be comfort care only at this time. Pt to be transported to CCU for family to say their goodbyes. All IV drips halted per Dr. Osullivan.
[2020-07-14] MEDS ORDERED: INSULIN REGULAR 100 UNITS/ML, 3ML VIAL IV ONE (19:30)
[2020-07-14] MEDS ORDERED: HYDROCORTISONE 100 MG INJ. IVPush SCH (19:30)
[2020-07-14] MEDS ORDERED: DEXTROSE 50%, 50ML SYRINGE IV PRN (19:30)
[2020-07-14] MEDS ORDERED: REGULAR INSULIN 100 UNITS in SODIUM CHLORIDE 0.9% 99 ML IV PRN (19:30)
[2020-07-14] MEDS ORDERED: morphine SULFATE 10 MG/ML, 1ML IV PRN (20:00)
[2020-07-14] MEDS ORDERED: MORPHINE SULFATE 4 MG/ML, 1ML IV PRN (20:00)
[2020-07-14] MEDS ORDERED: LORazepam 2 MG/ML, 1ML IV PRN ×2 (20:00)
[2020-07-14] MEDS ORDERED: ATROPINE OPHTH SOLN 1%, 5ML PO PRN (20:00)
[2020-07-14] MEDS ORDERED: SCOPOLAMINE 1MG PATCH TD PRN (20:30)
[2020-07-14] MEDS ORDERED: SODIUM CHLORIDE FLUSH 10ML SYR IVF SCH ×3 (20:30→21:00)
[2020-07-14] MEDS ORDERED: SILDENAFIL 20 MG TABLET PO SCH (21:00)
[2020-07-15] MEDS ORDERED: LEVOTHYROXINE 150 MCG TABLET PO SCH (06:00)
[2020-07-15] MEDS ORDERED: PANTOPRAZOLE 40 MG IV IVPush SCH (07:30)
[2020-07-15] MEDS ORDERED: ERGOCALCIFEROL 50,000 UNIT CAPSULE PO SCH (09:00)
[2020-07-15] MEDS ORDERED: TEMPLATE NON-FORMULARY MED. (Macitentan** (Opsumit**) 10 MG) HOMEMEDPO SCH (09:00)
[2020-07-15] MEDS ORDERED: PANTOPRAZOLE 40 MG IV IV SCH (09:00)
== END 2020-07-15 00:17 | DRG 208 ==
LOC: EDBD 15:44 → MERGE 15:44 → EDSEX 15:44 → ED 19:15 → CCU 19:18
PROVIDERS: ADMIT Hospitalist; ATTEND Hospitalist
PROC: 5A1935Z Respiratory Ventilation, Less than 24 Consecutive Hours (ICD-10-PCS; principal; 2020-07-14)
PROC: 0BH17EZ Insertion of Endotracheal Airway into Trachea, Via Natural or Artificial Opening (ICD-10-PCS; 2020-07-14)
PROC: 02HV33Z Insertion of Infusion Device into Superior Vena Cava, Percutaneous Approach (ICD-10-PCS; 2020-07-14)
PROC: B548ZZA Ultrasonography of Superior Vena Cava, Guidance (ICD-10-PCS; 2020-07-14)
PROC: 5A12012 Performance of Cardiac Output, Single, Manual (ICD-10-PCS; 2020-07-14)
DX: J69.0 Pneumonitis due to inhalation of food and vomit (principal); I46.9 Cardiac arrest, cause unspecified; J96.21 Acute and chronic respiratory failure with hypoxia; I50.32 Chronic diastolic (congestive) heart failure; Z99.11 Dependence on respirator [ventilator] status; R57.9 Shock, unspecified; J44.1 Chronic obstructive pulmonary disease with (acute) exacerbation; I13.0 Hypertensive heart and chronic kidney disease with heart failure and stage 1 through stage 4 chronic kidney disease, or unspecified chronic kidney disease; M06.9 Rheumatoid arthritis, unspecified; N18.3 Chronic kidney disease, stage 3 (moderate); Z51.5 Encounter for palliative care; Z79.52 Long term (current) use of systemic steroids; Z82.49 Family history of ischemic heart disease and other diseases of the circulatory system; Z86.73 Personal history of transient ischemic attack (TIA), and cerebral infarction without residual deficits; Z99.81 Dependence on supplemental oxygen; I25.2 Old myocardial infarction; I48.91 Unspecified atrial fibrillation; I27.20 Pulmonary hypertension, unspecified; E78.5 Hyperlipidemia, unspecified; E11.65 Type 2 diabetes mellitus with hyperglycemia; E11.22 Type 2 diabetes mellitus with diabetic chronic kidney disease; E03.9 Hypothyroidism, unspecified; F12.90 Cannabis use, unspecified, uncomplicated
CPT/HCPCS: 36415; 36556; 36600; 51702; 71045; 74018; 82803; 83605; 85025; 85610; 85730; 87040; 92950; 93005; 94002; 94003; 96361; 96374; 99291; 99292; G0378; J0171; J2704; J0330; J2270; J7030; J7050